=== PATIENT | male | born 1970 | race Caucasian/White ===

== ENCOUNTER 2018-12-28 01:43 | Observation (INO) ==
--- NOTE | 2018-12-28 03:17 | Emergency Department Note ---
Disposition Clinical Impression: Weakness, Shortness of breath Disposition: Admitted As Inpatient Condition: Good Time of Disposition: 21:40 General Adult HPI - General Chief complaint: ED Weakness Stated complaint: weak Time Seen by Provider: 12/28/18 03:11 Source: patient Limitations: no limitations - History of Present Illness Pain Scale: 0 - Related Data Home Medications Medication Instructions Recorded Confirmed Methadone 110 mg PO DAILY 12/28/18 12/28/18 Allergies Allergy/AdvReac Type Severity Reaction Status Date / Time hydrocodone Allergy Anaphylaxis Verified 12/10/17 19:28 Past Medical History - Past Medical History Medical history: Reports: COPD, GERD, hypertension, renal disease, other Surgical history: Reports: cholecystectomy, other (parathyroidectomy.) Psychiatric history: Reports: no psych history, other - Social History Smoking Status: Current every day smoker Smokeless Tobacco Status: No Alcohol use: Reports: none Drug use: Reports: cocaine, other Physical Exam - General Limitations: no limitations General appearance: alert, in no apparent distress Course Vital Signs Temperature 98.7 F 12/28/18 02:50 Pulse Rate 87 12/28/18 02:50 Respiratory Rate 20 12/28/18 02:50 Blood Pressure 150/97 12/28/18 02:50 O2 Sat by Pulse Oximetry 93 12/28/18 02:50 Temperature 97.9 F 12/28/18 19:25 Pulse Rate 93 12/28/18 19:25 Respiratory Rate 16 12/28/18 19:25 Blood Pressure 138/81 12/28/18 19:25 O2 Sat by Pulse Oximetry 93 12/28/18 19:25 Oxygen Delivery Oxygen Delivery Nasal Cannula Medical Decision Making - Lab Data Result diagrams: 12/28/18 03:04 12/28/18 03:04 Lab Results 12/28/18 12/28/18 12/28/18 Range/Units 03:04 03:04 03:04 WBC 12.0 H (4.3-11.1) K/mcL RBC 5.68 H (4.19-5.50) M/mcL Hgb 16.8 (12.9-16.9) g/dL Hct 51.2 H (37.5-50.1) % MCV 90.1 (83.0-100.0) fL MCH 29.6 (28.0-33.3) pg MCHC 32.8 (31.6-35.5) g/dL RDW 13.9 (11.5-14.5) % Plt Count 298 (140-400) K/mcL MPV 9.4 (9.4-12.4) fL Immature Gran % 0.6 (0-4) % Seg Neutrophils % 58.0 % Lymphocytes % 29.7 % Monocytes % 9.3 % Eosinophils % 2.1 % Basophils % 0.3 % Neutrophils # 6.9 (1.6-8.9) K/mcL Lymphocytes # 3.6 (0.6-4.6) K/mcL Monocytes # 1.1 (0.0-1.3) K/mcL Eosinophils # 0.3 (0.0-0.6) K/mcL Basophils # 0.0 (0.0-0.2) K/mcL Sample Site ABG pH (7.32-7.45) pH Units ABG pCO2 (35-45) mmHg ABG pO2 (85-104) mmHg ABG HCO3 (21-27) mEq/L ABG Total CO2 (20-26) mEq/L ABG O2 Saturation (95-98) % ABG Base Excess (-2 to 3) mEq/L Lewis Test O2 Delivery Device Inspired O2 (1-15=lpm [id number]=%) Sodium 139 (136-145) mEq/L Potassium 4.2 (3.5-5.1) mEq/L Chloride 105 (98-107) mEq/L Carbon Dioxide 25 (23-29) mEq/L BUN 35 H (6-20) mg/dL Creatinine 1.79 H (0.70-1.30) mg/dL Est GFR ( Amer) 49 L (> 60) Est GFR (Non-Af Amer) 41 L (> 60) BUN/Creatinine Ratio 20 (6-26) Glucose 100 (70-105) mg/dL Calculated Osmolality 296 (280-300) Calcium 8.2 L (8.6-10.3) mg/dL Troponin I < 0.03 (< 0.04) ng/mL B-Natriuretic Peptide 8 (Less than 100) pg/mL Urine Color (Yellow) Urine Clarity (Clear) Urine pH (5.0-8.0) pH Units Ur Specific [place] (1.010-1.025) Urine Protein (Neg-Trace) mg/dL Urine Glucose (UA) (Normal) mg/dL Urine Ketones (Negative) mg/dL Urine Blood (Negative) Urine Nitrite (Negative) Urine Bilirubin (Negative) Urine Urobilinogen (Normal) mg/dL Ur Leukocyte Esterase (Negative) Urine Microscopic RBC (0-3) per hpf Urine Microscopic WBC (0-3) per hpf Ur Squamous Epith Cells (None-Few) per lpf Urine Bacteria (None-Few) per hpf Hyaline Casts (None-Few) per lpf 12/28/18 12/28/18 Range/Units 03:28 04:00 WBC (4.3-11.1) K/mcL RBC (4.19-5.50) M/mcL Hgb (12.9-16.9) g/dL Hct (37.5-50.1) % MCV (83.0-100.0) fL MCH (28.0-33.3) pg MCHC (31.6-35.5) g/dL RDW (11.5-14.5) % Plt Count (140-400) K/mcL MPV (9.4-12.4) fL Immature Gran % (0-4) % Seg Neutrophils % % Lymphocytes % % Monocytes % % Eosinophils % % Basophils % % Neutrophils # (1.6-8.9) K/mcL Lymphocytes # (0.6-4.6) K/mcL Monocytes # (0.0-1.3) K/mcL Eosinophils # (0.0-0.6) K/mcL Basophils # (0.0-0.2) K/mcL Sample Site R Radial ABG pH 7.40 (7.32-7.45) pH Units ABG pCO2 45 (35-45) mmHg ABG pO2 57 L (85-104) mmHg ABG HCO3 28 H (21-27) mEq/L ABG Total CO2 29 H (20-26) mEq/L ABG O2 Saturation 89 L (95-98) % ABG Base Excess 2 (-2 to 3) mEq/L Lewis Test Positive O2 Delivery Device ROOM AIR Inspired O2 21.0 (1-15=lpm [id number]=%) Sodium (136-145) mEq/L Potassium (3.5-5.1) mEq/L Chloride (98-107) mEq/L Carbon Dioxide (23-29) mEq/L BUN (6-20) mg/dL Creatinine (0.70-1.30) mg/dL Est GFR ( Amer) (> 60) Est GFR (Non-Af Amer) (> 60) BUN/Creatinine Ratio (6-26) Glucose (70-105) mg/dL Calculated Osmolality (280-300) Calcium (8.6-10.3) mg/dL Troponin I (< 0.04) ng/mL B-Natriuretic Peptide (Less than 100) pg/mL Urine Color Yellow (Yellow) Urine Clarity Clear (Clear) Urine pH 5.5 (5.0-8.0) pH Units Ur Specific [place] 1.026 H (1.010-1.025) Urine Protein Trace (Neg-Trace) mg/dL Urine Glucose (UA) Normal (Normal) mg/dL Urine Ketones Negative (Negative) mg/dL Urine Blood Negative (Negative) Urine Nitrite Negative (Negative) Urine Bilirubin Negative (Negative) Urine Urobilinogen Normal (Normal) mg/dL Ur Leukocyte Esterase Small H (Negative) Urine Microscopic RBC 3-5 H (0-3) per hpf Urine Microscopic WBC 5-15 H (0-3) per hpf Ur Squamous Epith Cells Many H (None-Few) per lpf Urine Bacteria None Seen (None-Few) per hpf Hyaline Casts Few (None-Few) per lpf Attestation Statement - Attestation Attestation: I reviewed the residents documentation and agree with the residents assessment and plan of care. I have personally had face to face time with the patient. (Brief History, Brief Exam, and MDM) I personally supervised and was present for the marr/critical portions of the following procedures completed by the resident: (add procedures performed here). [id number] time provided Patient arrives by EMS complaining of "not feeling well." Feels short of breath. He states his family members woke him up from sleep and he was told he was "not acting right." He is an active smoker but denies alcohol ingestion. He takes no prescribed medications. On exam the patient does not appear in any acute cardiopulmonary distress. I attest to supervising the resident physician's interpretation of the ECG
[2018-12-28 03:25] LABS: Basophils % 0.3 %; Eosinophils # 0.3 K/mcL (0.0-0.6); Eosinophils % 2.1 %; Hematocrit 51.2 % (37.5-50.1); Hemoglobin 16.8 g/dL (12.9-16.9); Immature Granulocytes % 0.6 % (0-4); Lymphocytes # 3.6 K/mcL (0.6-4.6); Lymphocytes % 29.7 %; Mean Corpuscular HGB Conc 32.8 g/dL (31.6-35.5); Mean Corpuscular Hemoglobin 29.6 pg (28.0-33.3); Mean Corpuscular Volume 90.1 fL (83.0-100.0); Mean Platelet Volume 9.4 fL (9.4-12.4); Monocytes # 1.1 K/mcL (0.0-1.3); Monocytes % 9.3 %; Neutrophils # 6.9 K/mcL (1.6-8.9); Platelet Count 298 K/mcL (140-400); Red Blood Count 5.68 M/mcL (4.19-5.50); Red Cell Distribution Width 13.9 % (11.5-14.5)
[2018-12-28 03:32] LABS: ABG Base Excess 2 mEq/L (-2 to 3); ABG HCO3 28 mEq/L (21-27); ABG Oxygen Saturation 89 % (95-98); ABG PCO2 45 mmHg (35-45); ABG PO2 57 mmHg (85-104); ABG TCO2 29 mEq/L (20-26)
--- NOTE | 2018-12-28 03:37 | Emergency Department Note ---
Disposition Clinical Impression: Weakness, Shortness of breath Disposition: Admitted As Inpatient Condition: Good Time of Disposition: 05:41 General Adult HPI - General Chief complaint: ED Weakness Stated complaint: weak Time Seen by Provider: 12/28/18 03:11 Source: patient Mode of arrival: EMS Limitations: no limitations Nursing Notes Reviewed: Yes Vital Signs Reviewed: Yes - History of Present Illness HPI Narrative: Patient is a 48-year-old male with past medical history of hypertension, COPD, GERD who presents with abdominal pain, diarrhea, weakness that is ongoing for several months. Patient states that he is been feeling fatigued. Patient reports a history of his abdominal pain that has been intermittent for several months. Endorses some diarrhea consisting of runny, brown stools with no blood. Patient states that he came to the hospital by EMS because sister says "he was acting funny." However he denies this and currently does not endorse any symptoms. He does not have any numbness, paresthesias. He has not experienced any loss of consciousness or head trauma. Denies nausea, vomiting, fevers, chills. Is currently on methadone. Pain Scale: 0 - Related Data Home Medications Medication Instructions Recorded Confirmed Methadone 110 mg PO DAILY 12/28/18 12/28/18 Allergies Allergy/AdvReac Type Severity Reaction Status Date / Time hydrocodone Allergy Anaphylaxis Verified 12/10/17 19:28 All systems ED: reviewed and negative except as stated. Review of Systems: As Per HPI Constitutional: Denies: fever, chills, weakness Eyes: Denies: eye pain, eye discharge, vision change ENT ED: Denies: ear pain, throat pain, dental pain Cardiovascular: Denies: chest pain, palpitations, dyspnea on exertion Respiratory: Denies: cough, dyspnea, wheezes Gastrointestinal: Reports: abdominal pain. Denies: nausea, vomiting Genitourinary: Denies: urgency, dysuria, frequency Musculoskeletal: Denies: back pain, neck pain, joint swelling Integumentary: Denies: rash, abrasion, lesions Neurological: Denies: headache, weakness, numbness, paresthesias, confusion Psychiatric: Denies: anxiety, depression, suicidal thoughts Endocrine: Reports: fatigue. Denies: heat or cold intolerance, polydipsia Past Medical History - Past Medical History Attestation: Yes The following information was validated with the patient. Source: patient Medical history: Reports: COPD, GERD, hypertension, renal disease, other Surgical history: Reports: cholecystectomy, other (parathyroidectomy.) Psychiatric history: Reports: no psych history, other - Social History Smoking Status: Current every day smoker Smokeless Tobacco Status: No Alcohol use: Reports: none Drug use: Reports: cocaine, other Physical Exam GEN: well-appearing, no acute distress, conversant. HEENT: NC, AT. MMM. EOMI, clear conjunctiva, oropharynx clear. NECK: Supple without lymphadenopathy. No stiffness or restricted ROM. HEART: Normal rate and regular rhythm, normal S1/S1, no m/r/g LUNGS: CTAB, moving air well. No crackles or wheezes are heard. ABDOMEN: Soft, nontender, nondistended with good bowel sounds heard. BACK: No CVAT, no obvious deformity. EXTREMITIES: Without cyanosis, clubbing or edema. 5 out of 5 strength in upper and lower extremities. NEUROLOGICAL: Nonfocal neurologic exam. Alert and oriented, moving all 4 extre mities. Cranial nerves II through XII are intact. Observed to ambulate with normal gait. Skin: Warm and dry without any rash. - General Limitations: no limitations General appearance: alert, in no apparent distress Course Course Narrative: Patient was seen and examined. Vital signs normal and stable. Labs are ordered, ABG, CXR. Vital Signs Temperature 98.7 F 12/28/18 02:50 Pulse Rate 87 12/28/18 02:50 Respiratory Rate 20 12/28/18 02:50 Blood Pressure 150/97 12/28/18 02:50 O2 Sat by Pulse Oximetry 93 12/28/18 02:50 Temperature 98.7 F 12/28/18 02:50 Pulse Rate 87 12/28/18 02:50 Respiratory Rate 18 12/28/18 06:51 Blood Pressure 124/91 12/28/18 06:51 O2 Sat by Pulse Oximetry 93 12/28/18 02:50 Oxygen Delivery Oxygen Delivery Nasal Cannula Medical Decision Making - [facility] Narrative Medical decision making narrative: Patient is a 48-year-old male who is presenting with shortness of breath and weakness. Differential includes but is not limited to undiagnosed COPD, COPD exacerbation, heart failure exacerbation, pneumonia, pneumothorax, NJ, ACS, PE. Initial EKG and troponin were negative and show no signs of ischemic changes making NJ/ACS less likely. CBC is remarkable for a white count of 12. Chest x- ray shows some left basilar atelectasis with pulmonary vascular congestion. No evidence of pneumothorax. Patient has never been diagnosed as COPD before however he has a [id number] history of smoking and does have an increased oxygen requirement of 3 L. Patient failed to ambulate on room air. Patient brett atted to high 80s on room air. Low suspicion for PE since he is not having chest pain, tachycardia, no risk factors for PE/DVT. Plan is to admit the patient for suspected pneumonia with increased oxygen requirement with suspected underlying COPD. Patient is currently satting 95-96% on 3 L nasal cannula and resting comfortably. Patient was accepted by the hospitalist for admission. - Medical Records Medical records reviewed: Yes I reviewed the patient's medical records. - Lab Data Lab results reviewed: Yes I reviewed the patient's lab results. Result diagrams: 12/28/18 03:04 12/28/18 03:04 Lab Results 12/28/18 12/28/18 12/28/18 Range/Units 03:04 03:04 03:04 WBC 12.0 H (4.3-11.1) K/mcL RBC 5.68 H (4.19-5.50) M/mcL Hgb 16.8 (12.9-16.9) g/dL Hct 51.2 H (37.5-50.1) % MCV 90.1 (83.0-100.0) fL MCH 29.6 (28.0-33.3) pg MCHC 32.8 (31.6-35.5) g/dL RDW 13.9 (11.5-14.5) % Plt Count 298 (140-400) K/mcL MPV 9.4 (9.4-12.4) fL Immature Gran % 0.6 (0-4) % Seg Neutrophils % 58.0 % Lymphocytes % 29.7 % Monocytes % 9.3 % Eosinophils % 2.1 % Basophils % 0.3 % Neutrophils # 6.9 (1.6-8.9) K/mcL Lymphocytes # 3.6 (0.6-4.6) K/mcL Monocytes # 1.1 (0.0-1.3) K/mcL Eosinophils # 0.3 (0.0-0.6) K/mcL Basophils # 0.0 (0.0-0.2) K/mcL Sample Site ABG pH (7.32-7.45) pH Units ABG pCO2 (35-45) mmHg ABG pO2 (85-104) mmHg ABG HCO3 (21-27) mEq/L ABG Total CO2 (20-26) mEq/L ABG O2 Saturation (95-98) % ABG Base Excess (-2 to 3) mEq/L Lewis Test O2 Delivery Device Inspired O2 (1-15=lpm [id number]=%) Sodium 139 (136-145) mEq/L Potassium 4.2 (3.5-5.1) mEq/L Chloride 105 (98-107) mEq/L Carbon Dioxide 25 (23-29) mEq/L BUN 35 H (6-20) mg/dL Creatinine 1.79 H (0.70-1.30) mg/dL Est GFR ( Amer) 49 L (> 60) Est GFR (Non-Af Amer) 41 L (> 60) BUN/Creatinine Ratio 20 (6-26) Glucose 100 (70-105) mg/dL Calculated Osmolality 296 (280-300) Calcium 8.2 L (8.6-10.3) mg/dL Troponin I < 0.03 (< 0.04) ng/mL B-Natriuretic Peptide 8 (Less than 100) pg/mL Urine Color (Yellow) Urine Clarity (Clear) Urine pH (5.0-8.0) pH Units Ur Specific [place] (1.010-1.025) Urine Protein (Neg-Trace) mg/dL Urine Glucose (UA) (Normal) mg/dL Urine Ketones (Negative) mg/dL Urine Blood (Negative) Urine Nitrite (Negative) Urine Bilirubin (Negative) Urine Urobilinogen (Normal) mg/dL Ur Leukocyte Esterase (Negative) Urine Microscopic RBC (0-3) per hpf Urine Microscopic WBC (0-3) per hpf Ur Squamous Epith Cells (None-Few) per lpf Urine Bacteria (None-Few) per hpf Hyaline Casts (None-Few) per lpf 12/28/18 12/28/18 Range/Units 03:28 04:00 WBC (4.3-11.1) K/mcL RBC (4.19-5.50) M/mcL Hgb (12.9-16.9) g/dL Hct (37.5-50.1) % MCV (83.0-100.0) fL MCH (28.0-33.3) pg MCHC (31.6-35.5) g/dL RDW (11.5-14.5) % Plt Count (140-400) K/mcL MPV (9.4-12.4) fL Immature Gran % (0-4) % Seg Neutrophils % % Lymphocytes % % Monocytes % % Eosinophils % % Basophils % % Neutrophils # (1.6-8.9) K/mcL Lymphocytes # (0.6-4.6) K/mcL Monocytes # (0.0-1.3) K/mcL Eosinophils # (0.0-0.6) K/mcL Basophils # (0.0-0.2) K/mcL Sample Site R Radial ABG pH 7.40 (7.32-7.45) pH Units ABG pCO2 45 (35-45) mmHg ABG pO2 57 L (85-104) mmHg ABG HCO3 28 H (21-27) mEq/L ABG Total CO2 29 H (20-26) mEq/L ABG O2 Saturation 89 L (95-98) % ABG Base Excess 2 (-2 to 3) mEq/L Lewis Test Positive O2 Delivery Device ROOM AIR Inspired O2 21.0 (1-15=lpm [id number]=%) Sodium (136-145) mEq/L Potassium (3.5-5.1) mEq/L Chloride (98-107) mEq/L Carbon Dioxide (23-29) mEq/L BUN (6-20) mg/dL Creatinine (0.70-1.30) mg/dL Est GFR ( Amer) (> 60) Est GFR (Non-Af Amer) (> 60) BUN/Creatinine Ratio (6-26) Glucose (70-105) mg/dL Calculated Osmolality (280-300) Calcium (8.6-10.3) mg/dL Troponin I (< 0.04) ng/mL B-Natriuretic Peptide (Less than 100) pg/mL Urine Color Yellow (Yellow) Urine Clarity Clear (Clear) Urine pH 5.5 (5.0-8.0) pH Units Ur Specific [place] 1.026 H (1.010-1.025) Urine Protein Trace (Neg-Trace) mg/dL Urine Glucose (UA) Normal (Normal) mg/dL Urine Ketones Negative (Negative) mg/dL Urine Blood Negative (Negative) Urine Nitrite Negative (Negative) Urine Bilirubin Negative (Negative) Urine Urobilinogen Normal (Normal) mg/dL Ur Leukocyte Esterase Small H (Negative) Urine Microscopic RBC 3-5 H (0-3) per hpf Urine Microscopic WBC 5-15 H (0-3) per hpf Ur Squamous Epith Cells Many H (None-Few) per lpf Urine Bacteria None Seen (None-Few) per hpf Hyaline Casts Few (None-Few) per lpf - Radiology Data Radiology results reviewed: Yes I reviewed the patient's radiology results. - EKG Data EKG #1 EKG attestation: Yes I reviewed and interpreted this EKG. EKG results narrative: EKG was obtained at 3:42 AM. My interpretation of the EKG shows normal sinus rhythm, no axis deviation, normal intervals, no ST elevations or depressions, no T-wave inversions. No hypertrophy. No evidence of WPW, Brugada, HOCM. Compared to prior from 10/02/2015.
[2018-12-28 03:44] LABS: BUN/Creatinine Ratio 20 (6-26); Blood Urea Nitrogen 35 mg/dL (6-20); Calcium 8.2 mg/dL (8.6-10.3); Carbon Dioxide 25 mEq/L (23-29); Chloride 105 mEq/L (98-107); Glucose 100 mg/dL (70-105); Osmolality,Calculated 296 (280-300); Potassium 4.2 mEq/L (3.5-5.1); Sodium 139 mEq/L (136-145); eGFR For African Americans 49 (> 60); eGFR For Non-African Americans 41 (> 60)
[2018-12-28 03:54] LABS: Troponin I < 0.03 ng/mL (< 0.04)
[2018-12-28 04:16] LABS: Bilirubin,Urine Negative (Negative); Blood,Urine Negative (Negative); Clarity,Urine Clear (Clear); Color,Urine Yellow (Yellow); Glucose,Urine (UA) Normal (Normal); Ketones,Urine Negative (Negative); Leukocyte Esterase,Urine Small (Negative); Nitrite,Urine Negative (Negative); PH,Urine 5.5 pH Units (5.0-8.0); Protein,Urine Trace mg/dL (Neg-Trace); Specific Gravity,Urine 1.026 (1.010-1.025); Urobilinogen,Urine Normal (Normal)
[2018-12-28 04:17] LABS: Bacteria,Urine None Seen per hpf (None-Few); Hyaline Casts,Urine Few per lpf (None-Few); Squamous Epithelial Cell,Urine Many per lpf (None-Few)
[2018-12-28] MEDS ORDERED: levoFLOXacin 500 MG/100 ML 500 MG/100 ML BAG IVPB ONE (04:37)
[2018-12-28] MEDS ORDERED: methylPREDNISolone 125 MG/2 ML VIAL IVP ONE (04:38)
[2018-12-28] MEDS ORDERED: Ondansetron ODT 4 MG TAB.RAPDIS SL PRN (11:23)
[2018-12-28] MEDS ORDERED: Naloxone 0.4 MG/ML INJ IVP PRN (11:23)
--- NOTE | 2018-12-28 11:26 | Internal Med History&Physical ---
Date of Encounter: 12/28/18 Time of Encounter: 11:26 Internal Medicine - H&P: HPI Chief complaint: shortness of breath History of present illness: Mr. Fairchild is a 48 year old male with past medical history of OPD, GERD, hypertension, renal disease and 40 back year history of smoking who presented to the ER with shortness of breath associated with generalized weakness as well as fatigue. Patient also reported increase oxygen requirement to almost 3 L The patient also complaining of some abdominal pain associated with loose stool however she deny hematochezia or melena. The patient denied nausea, vomiting, fever and chills. The patient denies numbness, tingling, paresthesia, lightheadedness and dizziness. She was evaluated by the ER staff and her EKG revealed no significant of ST or T-wave changes, troponin first set was was no significant abnormalities. X-ray revealed pulmonary vascular congestion and atelectasis. As per ER staff the patient was saturating around 80% on on arrivaL her oxygen requirement increase to 3 L. The patient was treated with Solu-Medrol and respiratory treatment and was admitted for further evaluation and management. Past Med Surg Social Fam HX - Past Medical History Medical history: COPD, GERD, hypertension, renal disease, other Additional medical history: awaiting PET scan results "found something in my lungs" Psychiatric history: no psych history, other - Past Surgical History Surgical History: cholecystectomy, other (parathyroidectomy.) Additional surgical history: parathyroid - Social History Smoking Status: Current every day smoker Smokeless Tobacco Status: No Alcohol use: none Drug use: cocaine, other - Family History Father Living Status: Hx Family Cardiac Disorders: Yes Hx Family Respiratory Disorders: Yes Hx Family Cancer: Yes Hx Family GI Disorders: No Hx Family Endocrine Disorder: No Hx Family Neuromuscular Disorders: No Hx Family Neurologic Disorders: No Hx Family HEENT Disorders: No Hx Family Autoimmune Disorders: No Mother Adopted: No Living Status: Hx Family Cardiac Disorders: Yes Hx Family Respiratory Disorders: Yes Hx Family Cancer: No Hx Family GI Disorders: No Hx Family Endocrine Disorder: Yes Hx Family Neuromuscular Disorders: No Hx Family Neurologic Disorders: No Hx Family HEENT Disorders: No Hx Family Autoimmune Disorders: No Internal Medicine - H&P: Meds Albuterol Sulfate [Proventil Inhaler] 2 puff IH Q4HR PRN #1 [email or web address] 12/29/18 [Rx] Doxycycline 100 mg PO BID 4 Days #8 capsule 12/29/18 [Rx] Methadone Oral Concentrate [Methadone] 110 mg PO DAILY 12/29/18 [History] amLODIPine [Norvasc] 5 mg PO DAILY 30 Days #30 tablet 12/29/18 [Rx] predniSONE [PredniSONE] See Taper PO DAILY 12 Days #30 tablet 12/29/18 [Rx] Allergy/AdvReac Type Severity Reaction Status Date / Time hydrocodone Allergy Anaphylaxis Verified 12/10/17 19:28 All Systems PM: A 10-system review of systems was performed and is negative for pertinent findings except as documented above in the HPI. - Constitutional Vitals: Temp Pulse Resp BP Pulse Ox 98.4 F 81 14 135/89 95 12/28/18 10:51 12/28/18 10:51 12/28/18 10:51 12/28/18 10:51 12/28/18 10:51 General appearance: Present: A&O X 3 Exam: . - Head Head exam: Present: atraumatic, normocephalic - Neck Neck exam general surgery: Present: supple, trachea midline. Absent: lym phadenopathy - Respiratory Respiratory exam: Present: rhonchi, wheezes. Absent: accessory muscle use, rales - Cardiovascular Cardiovascular exam: Present: RRR, +S1, +S2. Absent: diastolic murmur, gallop, rubs, systolic murmur - GI/Abdominal GI/Abdominal exam: Present: normal bowel sounds, soft, no peritoneal signs. Absent: distended, tenderness - Extremities Exam Extremities exam: Present: warm, radial pulses palpable and symmetrical. A bsent: calf tenderness, cyanotic, pedal edema Internal Med - H&P Results - Labs CBC & Chem 7: 12/29/18 06:46 12/29/18 06:46 Labs: Short CBC 12/28/18 Range/Units 03:04 WBC 12.0 H (4.3-11.1) K/mcL Hgb 16.8 (12.9-16.9) g/dL Hct 51.2 H (37.5-50.1) % Plt Count 298 (140-400) K/mcL Neutrophils # 6.9 (1.6-8.9) K/mcL BMP 12/28/18 03:04 Sodium 139 Potassium 4.2 Chloride 105 Carbon Dioxide 25 BUN 35 H Creatinine 1.79 H Glucose 100 Calcium 8.2 L Cardiac Enzymes 12/28/18 Range/Units 03:04 Troponin I < 0.03 (< 0.04) ng/mL Urine 12/28/18 Range/Units 04:00 Urine Color Yellow (Yellow) Urine Clarity Clear (Clear) Urine pH 5.5 (5.0-8.0) pH Units Ur Specific [place] 1.026 H (1.010-1.025) Urine Protein Trace (Neg-Trace) mg/dL Urine Glucose (UA) Normal (Normal) mg/dL - ABG Interpretation ABG results: 12/28/18 03:28 ABG pH 7.40 ABG pCO2 45 ABG pO2 57 L ABG HCO3 28 H ABG Total CO2 29 H ABG O2 Saturation 89 L ABG Base Excess 2 - Impressions ITS Impressions Chest X-Ray 12/28/18 02:54 IMPRESSION: Left basilar atelectasis/pneumonitis with possible small effusion. Mild pulmonary vascular congestion. D/ / Fausto Freire / Fausto Freire Interpreting Provider: Fausto Freire - Assessment and Plan (1) Acute exacerbation of chronic obstructive airways disease Status: Acute Assessment and plan: ASSESSMENT: - SOB COPD exacerbation caused by URTI vs allergen exposure,vs medication nonocompliance *Pneumonia - ?? infiltrate on CXR PLAN: - Aerosols q 4 hr and PRN SOB - Solu-medrol 40 mg IV q 6 hr - O2 to keep SpO2 higher than 92% (SpO higher than 95% if CAD) - CBCD, BMP in AM - Sputum Gram stain, C+S - Tylenol 650 mg PO q 4-6 hr PRN pain/fever - ABs (2) Acute renal injury Status: Acute Assessment and plan: The patient has history of acute kidney injury in the past, appears to be recovered in 2018, they his creatinine is above his baseline, most likely secondary to volume depletion and possible underlying infectious process, we will continue to monitor kidney function, start the patient on IV hydration with normal saline, strict I&O's, renal dosing of medication as per GFR (3) Weakness Status: Acute (4) Tobacco abuse Status: Chronic Assessment and plan: The patient was counseled about smoking cessation - Time Spent With Patient Total time spent is greater than 50% in coordination of care (as documented) at patient's floor/unit and/or counseling patient:
[2018-12-28] MEDS: MethylPREDNISolone 40 MG/ML VIAL IVP SCH ×3 (13:06→23:59)
[2018-12-28] MEDS: Methadone Oral Concentrate 50 MG/5 ML UDC PO SCH (14:50)
[2018-12-28] MEDS: Ipratropium/Albuterol Neb 3 ML IH SCH ×2 (16:04→22:55)
--- NOTE | 2018-12-28 16:46 | Electrocardiograph Report ---
[address] [address] Test Date: 2018-12-28 Pat Name: Gibran Fairchild Department: [id number] Room: 3A14 Gender: M Advance Agent: : [id number] Requested By: Alfredito Harris Order Number: [id number] Reading MD: Dave Rouse Measurements Intervals [place] Rate: 88 P: 39 DC: 151 QRS: 38 QRSD: 104 T: 54 QT: 407 QTc: 493 Interpretive Statements Sinus rhythm Borderline prolonged QT interval Electronically Signed On 12-28-2018 16:44:34 EDT by Dave Rouse
[2018-12-28] MEDS ORDERED: Nicotine 7 MG PATCH.TD24 TD SCH (21:45)
[2018-12-28] MEDS: Nicotine 2 MG GUM BC PRN (22:02)
[2018-12-29] MEDS: Nicotine 2 MG GUM BC PRN ×2 (03:06→15:07)
[2018-12-29] MEDS: Ipratropium/Albuterol Neb 3 ML IH SCH ×3 (03:21→15:33)
[2018-12-29] MEDS: MethylPREDNISolone 40 MG/ML VIAL IVP SCH ×2 (05:33→12:00)
[2018-12-29] MEDS ORDERED: 0.9 % Sodium Chloride 1,000 ML IVC SCH (05:45)
[2018-12-29] MEDS ORDERED: Doxycycline 100 MG in 0.9 % Sodium Chloride Mini Bag 100 ML IVPB SCH (06:00)
[2018-12-29 07:12] LABS: Basophils % 0.1 %; Hematocrit 47.4 % (37.5-50.1); Hemoglobin 15.4 g/dL (12.9-16.9); Immature Granulocytes % 1.1 % (0-4); Lymphocytes # 0.9 K/mcL (0.6-4.6); Lymphocytes % 5.1 %; Mean Corpuscular HGB Conc 32.5 g/dL (31.6-35.5); Mean Corpuscular Hemoglobin 28.8 pg (28.0-33.3); Mean Corpuscular Volume 88.6 fL (83.0-100.0); Mean Platelet Volume 9.7 fL (9.4-12.4); Monocytes # 0.8 K/mcL (0.0-1.3); Monocytes % 4.3 %; Platelet Count 266 K/mcL (140-400); Red Blood Count 5.35 M/mcL (4.19-5.50); Red Cell Distribution Width 13.4 % (11.5-14.5); Segmented Neutrophils % 89.4 %
[2018-12-29 07:21] LABS: Prothrombin Time 11.9 Seconds (9.4-12.1)
[2018-12-29 07:30] LABS: Alanine Aminotransferase 14 Units/L (7-52); Albumin 3.7 g/dL (3.5-5.7); Albumin/Globulin Ratio 1.1 (1.1-2.2); Alkaline Phosphatase 78 Units/L (34-104); Aspartate Amino Transferase 13 Units/L (13-39); BUN/Creatinine Ratio 24 (6-26); Bilirubin,Total 0.2 mg/dL (0.3-1.0); Blood Urea Nitrogen 29 mg/dL (6-20); Calcium 8.2 mg/dL (8.6-10.3); Carbon Dioxide 23 mEq/L (23-29); Chloride 101 mEq/L (98-107); Cholesterol 178 mg/dL (< 200); Globulin 3.4 g/dL (2.4-3.5); Glucose 297 mg/dL (70-105); HDL Cholesterol 44 mg/dL (40-59); LDL Cholesterol,Calculated 108 mg/dL (0-99); Magnesium 1.9 mg/dL (1.6-2.6); Osmolality,Calculated 301 (280-300); Phosphorous 3.5 mg/dL (2.7-4.5); Potassium 4.1 mEq/L (3.5-5.1); Sodium 137 mEq/L (136-145); Total Protein 7.1 g/dL (6.4-8.9); Triglycerides 128 mg/dL (< 150); eGFR For African Americans > 60 (> 60); eGFR For Non-African Americans > 60 (> 60)
[2018-12-29 07:31] LABS: Neutrophils # 16.5 K/mcL (1.6-8.9); White Blood Count 18.4 K/mcL (4.3-11.1)
[2018-12-29] MEDS: Methadone Oral Concentrate 50 MG/5 ML UDC PO SCH (07:36)
[2018-12-29] MEDS ORDERED: levoFLOXacin 500 MG/100 ML 500 MG/100 ML BAG IVPB SCH (09:00)
--- NOTE | 2018-12-29 09:51 | Internal Med Progress Note ---
Hospitalist Progress Note - Encounter Date of Encounter: 12/29/18 Time of Encounter: 09:51 - Subjective Interval History: Patient seen and examined this morning at bedside. No acute overnight events. Denies new complaints. Breathing improved. Denies fevers chills nausea vomiting or diarrhea. Denies any chest pain or abdominal pain. - Exam Vitals: Temp Pulse Resp BP Pulse Ox 97.7 F 76 15 161/83 93 12/29/18 07:16 12/29/18 07:16 12/29/18 07:16 12/29/18 07:16 12/29/18 07:20 Exam: General: In no acute distress. Respiratory exam: no accessory muscle use, good air entry, occasioinal rhonchi Cardiovascular exam: RRR, +S1, +S2. no murmur, gallop, rubs. GI/Abdominal exam: Non-tender, Non-distended, normal bowel sounds, soft, no peritoneal signs. Extremities exam: no pedal edema, pulses palpable in b/l lower extremities. no calf tenderness Neurological exam: CN II-XII intact, AO X3, no focal deficits. Skin exam: No skin rash - Assessment and Plan (1) Acute renal injury Current Visit: No Status: Acute (2) Acute exacerbation of chronic obstructive airways disease Current Visit: No Status: Acute (3) Tobacco abuse Current Visit: No Status: Chronic (4) Weakness Current Visit: Yes Status: Acute - Summary of Assessment and Plan Summary of Assessment and Plan: Assessment Acute Acute hypoxic respiratory failure Likely COPD exacerbation KAPIL on CKD leukocytosis hyperglycemia Chronic tobacco smoking HTN GERD Opiate dependence on methadone Plan - Likely undiagnosed COPD. c/w solumedrol taper and bronchodilators. CXR with Lt basilar infiltrate/atelectasis. c/w empiric doxycycline, chosen due to prolong QT with methadone use. Clinically improved. Will do short 5 day course. start symbicort. - c/w supplemental oxygen. currently doing well on room air resting. Will walk him later today for discharge planning. - KAPIL resolved with IVF. will stop fluids. start diet - leukocytosis and hyperglycemia likey from steroids - couselled on smoking cessation - will need outpatient pulm follow up - Likely plan for DC tomorrow if continue improvement. f/u oxygen needs. Internal Medicine: Result - Labs CBC & Chem 7: 12/29/18 06:46 12/29/18 06:46 Labs: Short CBC 12/29/18 Range/Units 06:46 WBC 18.4 H D (4.3-11.1) K/mcL Hgb 15.4 (12.9-16.9) g/dL Hct 47.4 (37.5-50.1) % Plt Count 266 (140-400) K/mcL Neutrophils # 16.5 H (1.6-8.9) K/mcL BMP 12/29/18 06:46 Sodium 137 Potassium 4.1 Chloride 101 Carbon Dioxide 23 BUN 29 H Creatinine 1.19 Glucose 297 H Calcium 8.2 L Cardiac Enzymes 12/28/18 12/28/18 12/28/18 Range/Units 11:55 17:22 23:16 Troponin I < 0.03 < 0.03 < 0.03 (< 0.04) ng/mL Liver Function 12/29/18 Range/Units 06:46 Total Bilirubin 0.2 L (0.3-1.0) mg/dL AST 13 (13-39) Units/L ALT 14 (7-52) Units/L Alkaline Phosphatase 78 (34-104) Units/L Albumin 3.7 (3.5-5.7) g/dL - ABG Interpretation ABG results: ABG ABG pH 7.40 pH Units (7.32-7.45) 12/28/18 03:28 ABG pCO2 45 mmHg (35-45) 12/28/18 03:28 ABG pO2 57 mmHg (85-104) L 12/28/18 03:28 ABG O2 Saturation 89 % (95-98) L 12/28/18 03:28 PT/INR, D-dimer PT 11.9 Seconds (9.4-12.1) 12/29/18 06:46 Consult Discharge Plan - Plan Referrals: Stefanie Hu [Resident] - 01/08/19 2:00 pm
[2018-12-29 14:45] VITALS: BP 184/90
[2018-12-29] MEDS ORDERED: Acetaminophen 325 MG TABLET PO PRN (16:17)
--- NOTE | 2018-12-29 16:26 | Electrocardiograph Report ---
[address] [address] Test Date: 2018-12-28 Pat Name: Gibran Fairchild Department: 115 Room: 3A14 Gender: M [employer]: : 1970 Requested By: Connie Salazar Order Number: [id number] Reading MD: Pradeep Barr Measurements Intervals [place] Rate: 79 P: 58 DE: 166 QRS: 19 QRSD: 99 T: 48 QT: 389 QTc: 423 Interpretive Statements SINUS RHYTHM NONSPECIFIC T-WAVE ABNORMALITY Electronically Signed On 12-29-2018 16:25:11 EDT by Pradeep Barr
--- NOTE | 2018-12-29 16:50 | Discharge Summary ---
- NOTES TO OUTPATIENT PROVIDER Notes to Outpatient Provider: follow-up in 1-2 weeks for pulmonary function test evaluation to diagnose COPD. We will need monitoring for his blood pressure management as well. Orders not resulted at time of discharge: Pending orders 12/28/18 06:13 Culture,Blood [BC] Stat Date of Encounter: 12/29/18 Time of Encounter: 16:45 - Discharge Diagnosis (1) Acute renal injury Priority: Primary Status: Acute (2) Acute exacerbation of chronic obstructive airways disease Priority: Primary Status: Acute (3) Tobacco abuse Priority: Secondary Status: Chronic (4) Weakness Priority: Secondary Status: Acute Hospital course: Mr. Fairchild is a 48 year old male with past medical history of COPD, GERD, hypertension came in with complaint of shortness of breath and fatigue. Patient had chest x-ray with showed left basilar atelectasis versus pneumonitis. Patient had extensive smoking history and was thought to have COPD exacerbation. There was some congestion described on chest x-ray however patient's BNP is 8 essentially ruling out CHF this patient without cardiac history. He was started on IV steroids and inhaler treatments. He is on methadone program and hence was started on doxycycline for possible underlying infectious etiology for COPD exacerbation. He is also not diagnosed with COPD at baseline and only takes methadone at home. Patient is doing well today and not needing any supplemental oxygen. He is KAPIL has improved and currently renal function at baseline. He stable to be discharged to follow up outpatient with PCP for definitive COPD diagnosis by PFTs. We will discharged with steroid taper and when necessary albuterol. We will also discharged with 5 mg of amlodipine. Discharge discussed with: patient, nurse, social work - Time Spent with Patient Total time spent providing and/or coordinating discharge services: Time spent: Greater than 30 minutes (35) - Discharge Medications Prescriptions: New Doxycycline 100 mg PO BID 4 Days #8 capsule predniSONE [PredniSONE] See Taper PO DAILY 12 Days #30 tablet Albuterol Sulfate [Proventil Inhaler] 2 puff IH Q4HR PRN #1 hfa.[email or web address] PRN Reason: Shortness Of Breath/Wheezing amLODIPine [Norvasc] 5 mg PO DAILY 30 Days #30 tablet Continued Methadone Oral Concentrate [Methadone] 110 mg PO DAILY Home Medications: Albuterol Sulfate [Proventil Inhaler] 2 puff IH Q4HR PRN #1 hfa.aer.ad 12/29/18 [Rx] Doxycycline 100 mg PO BID 4 Days #8 capsule 12/29/18 [Rx] Methadone Oral Concentrate [Methadone] 110 mg PO DAILY 12/29/18 [History] amLODIPine [Norvasc] 5 mg PO DAILY 30 Days #30 tablet 12/29/18 [Rx] predniSONE [PredniSONE] See Taper PO DAILY 12 Days #30 tablet 12/29/18 [Rx] Allergies/Adverse Reactions: Allergy/AdvReac Type Severity Reaction Status Date / Time hydrocodone Allergy Anaphylaxis Verified 12/10/17 19:28 Date of admission: 12/28/18 06:13 Primary care physician: PCP NONE Consults: 12/28/18 11:49 Consult to Nurse Navigator [CONS] Routine Comment: Discharging clinician: Yuriy Guzman - Constitutional Vitals: Temp Pulse Resp BP Pulse Ox 97.5 F L 85 16 184/90 91 12/29/18 14:44 12/29/18 14:44 12/29/18 15:34 12/29/18 14:44 12/29/18 15:34 Exam: General: In no acute distress. Respiratory exam: no accessory muscle use, good air entry, occasioinal rhonchi Cardiovascular exam: RRR, +S1, +S2. no murmur, gallop, rubs. GI/Abdominal exam: Non-tender, Non-distended, normal bowel sounds, soft, no peritoneal signs. Extremities exam: no pedal edema, pulses palpable in b/l lower extremities. no calf tenderness Neurological exam: CN II-XII intact, AO X3, no focal deficits. Skin exam: No skin rash - Patient Status Disposition: Home, Self-Care Condition: Good - Discharge Instructions Follow Up With: Stefanie Hu [Resident] - 01/08/19 2:00 pm - Diet and Activity Activity: increase activity as tolerated
[2018-12-29] MEDS ORDERED: MethylPREDNISolone 40 MG/ML VIAL IVP SCH (18:00)
[2018-12-29] MEDS ORDERED: Budesonide/Formoterol 160/4.5 1 PUFF INH IH SCH (22:00)
== END 2018-12-29 17:03 | disposition home or self-care (01) ==
LOC: 3ANU 01:43 → EMEROOARM 01:43 → 3ANU 07:47
PROVIDERS: ADMIT Pediatrics; ATTEND Pediatrics

== ENCOUNTER 2020-06-04 22:47 | Inpatient (IN) ==
[2020-06-04] MEDS ORDERED: Ondansetron 4 MG/2 ML VIAL IVP ONE (22:57)
[2020-06-04] MEDS ORDERED: Azithromycin 500 MG in D5% in Water 250 ML IVPB ONE (22:57)
[2020-06-04] MEDS ORDERED: 0.9 % Sodium Chloride 1,000 ML IVC ONE (22:57)
[2020-06-04] MEDS ORDERED: Ipratropium/Albuterol Neb 3 ML IH ONE (22:57)
[2020-06-04 23:56] LABS: Basophils # 0.1 K/mcL (0.0-0.2); Basophils % 0.3 %; Eosinophils # 0.1 K/mcL (0.0-0.6); Eosinophils % 0.9 %; Hematocrit 46.1 % (37.5-50.1); Hemoglobin 15.2 g/dL (12.9-16.9); Immature Granulocytes % 0.6 % (0-4); Lymphocytes % 13.7 %; Mean Corpuscular Hemoglobin 27.9 pg (28.0-33.3); Mean Corpuscular Volume 84.6 fL (83.0-100.0); Mean Platelet Volume 9.5 fL (9.4-12.4); Monocytes # 1.1 K/mcL (0.0-1.3); Monocytes % 7.5 %; Neutrophils # 11.4 K/mcL (1.6-8.9); Platelet Count 325 K/mcL (140-400); Red Blood Count 5.45 M/mcL (4.19-5.50); Red Cell Distribution Width 14.1 % (11.5-14.5); White Blood Count 14.9 K/mcL (4.3-11.1)
[2020-06-04 23:59] LABS: INR 1.1; Prothrombin Time 13.2 Seconds (9.4-12.1)
[2020-06-05 00:02] LABS: Activated Partial Thrombo Time 28.3 Seconds (26.0-36.0)
[2020-06-05 00:17] LABS: ABG Base Excess 0 mEq/L (-2 to 3); ABG HCO3 27 mEq/L (21-27); ABG Oxygen Saturation 90 % (95-98); ABG PCO2 52 mmHg (35-45); ABG PH 7.33 pH Units (7.32-7.45); ABG PO2 63 mmHg (85-104); ABG TCO2 29 mEq/L (20-26)
[2020-06-05 00:30] LABS: Acetaminophen < 10 mcg/mL (10-20); Alanine Aminotransferase 16 Units/L (7-52); Albumin 3.9 g/dL (3.5-5.7); Albumin/Globulin Ratio 1.1 (1.1-2.2); Alkaline Phosphatase 109 Units/L (34-104); Aspartate Amino Transferase 19 Units/L (13-39); BUN/Creatinine Ratio 21 (6-26); Bilirubin,Direct 0.1 mg/dL (0.0-0.2); Bilirubin,Indirect 0.3 mg/dL (0.0-1.0); Bilirubin,Total 0.4 mg/dL (0.3-1.0); Blood Urea Nitrogen 31 mg/dL (6-20); Calcium 7.1 mg/dL (8.6-10.3); Carbon Dioxide 24 mEq/L (23-29); Chloride 102 mEq/L (98-107); Creatine Kinase 354 Units/L (30-223); Ethanol < 10 mg/dL (Less than 10); Globulin 3.7 g/dL (2.4-3.5); Glucose 281 mg/dL (70-105); Magnesium 1.7 mg/dL (1.6-2.6); Osmolality,Calculated 303 (280-300); Potassium 3.4 mEq/L (3.5-5.1); Salicylate < 2.5 mg/dL (15.0-30.0); Sodium 138 mEq/L (136-145); Total Protein 7.6 g/dL (6.4-8.9); Troponin I < 0.03 ng/mL (< 0.04); eGFR For African Americans > 60 (> 60); eGFR For Non-African Americans 50 (> 60)
[2020-06-05 00:36] LABS: Amphetamine Screen,Urine Positive ng/mL (Cutoff=1000); Barbiturate Screen,Urine Negative ng/mL (Cutoff=200); Benzodiazepines Screen,Urine Positive ng/mL (Cutoff=200); Cannabinoid Screen,Urine Negative ng/mL (Cutoff = 50); Cocaine Screen,Urine Negative ng/mL (Cutoff= 300); Opiate Screen,Urine Positive ng/mL (Cutoff=300); Phencyclidine Screen,Urine Negative ng/mL (Cutoff=25)
[2020-06-05] MEDS ORDERED: Isovue-370 500 ML BOTTLE IVP ONE (00:47)
[2020-06-05 00:55] LABS: Lipase 985 Units/L (11-82)
[2020-06-05 00:58] LABS: Adenovirus Not Detected (Not Detect); Bordetella Pertussis Not Detected (Not Detect); Chlamydophila pneumoniae Not Detected (Not Detect); Coronavirus 229E Not Detected (Not Detect); Coronavirus HKU1 Not Detected (Not Detect); Coronavirus NL63 Not Detected (Not Detect); Coronavirus OC43 Not Detected (Not Detect); Human Metapneumovirus Not Detected (Not Detect); Human Rhinovirus/Enterovirus Not Detected (Not Detect); Influenza A Subtype 2009 H1 Not Detected (Not Detect); Influenza B Not Detected (Not Detect); Mycoplasma pneumoniae Not Detected (Not Detect); Parainfluenza Virus 1 Not Detected (Not Detect); Parainfluenza Virus 2 Not Detected (Not Detect); Parainfluenza Virus 3 Not Detected (Not Detect); Parainfluenza Virus 4 Not Detected (Not Detect); Respiratory Syncytial Virus Not Detected (Not Detect); SARS-CoV-2 Not Detected (Not Detect)
[2020-06-05 01:37] LABS: Bacteria,Urine Few per hpf (None-Few); Bilirubin,Urine Negative (Negative); Blood,Urine Trace (Negative); Clarity,Urine Clear (Clear); Color,Urine Yellow (Yellow); Glucose,Urine (UA) 100 mg/dL (Normal); Ketones,Urine Negative (Negative); Leukocyte Esterase,Urine Negative (Negative); Mucus,Urine Few per lpf (None-Few); Nitrite,Urine Negative (Negative); PH,Urine 5.5 pH Units (5.0-8.0); Protein,Urine 30 mg/dL (Neg-Trace); RBC,Urine 0-3 per hpf (0-3); Specific Gravity,Urine 1.022 (1.010-1.025); Squamous Epithelial Cell,Urine Few per hpf (None-Few); Urobilinogen,Urine Normal (Normal); WBC,Urine 0-3 per hpf (0-3)
[2020-06-05] MEDS ORDERED: Ampicillin/Sulbactam 3,000 MG in 0.9 % Sodium Chloride Mini Bag 100 ML IVPB ONE (02:42)
[2020-06-05] MEDS ORDERED: Dextrose Gel 15 GM/37.5 ML TUBE PO PRN ×2 (03:29)
[2020-06-05] MEDS ORDERED: D5% in Water 1,000 ML IVC PRN (03:29)
[2020-06-05] MEDS ORDERED: *HR* Dextrose 50 % in Water (Vial) 50 ML VIAL IVP PRN (03:29)
[2020-06-05] MEDS ORDERED: Potassium Chloride 40 MEQ, Lidocaine 1% 2 ML in 0.9 % Sodium Chloride 500 ML IVPB ONE (03:30)
[2020-06-05] MEDS ORDERED: Ipratropium/Albuterol Neb 3 ML IH PRN (03:31)
[2020-06-05] MEDS: 0.9 % Sodium Chloride 1,000 ML IVC SCH ×3 (04:51→15:15)
[2020-06-05 06:22] LABS: Basophils % 0.2 %; Eosinophils % 0.1 %; Hematocrit 45.1 % (37.5-50.1); Hemoglobin 14.6 g/dL (12.9-16.9); Immature Granulocytes % 0.6 % (0-4); Lymphocytes # 0.8 K/mcL (0.6-4.6); Mean Corpuscular HGB Conc 32.4 g/dL (31.6-35.5); Mean Corpuscular Hemoglobin 28.2 pg (28.0-33.3); Mean Corpuscular Volume 87.2 fL (83.0-100.0); Mean Platelet Volume 9.6 fL (9.4-12.4); Monocytes # 0.2 K/mcL (0.0-1.3); Monocytes % 1.3 %; Neutrophils # 11.9 K/mcL (1.6-8.9); Platelet Count 304 K/mcL (140-400); Red Blood Count 5.17 M/mcL (4.19-5.50); Segmented Neutrophils % 91.8 %; White Blood Count 12.9 K/mcL (4.3-11.1)
[2020-06-05 06:28] LABS: Estimated Average Glucose 229 mg/dl; Hemoglobin A1C 9.6 %
[2020-06-05 06:52] LABS: BUN/Creatinine Ratio 22 (6-26); Blood Urea Nitrogen 27 mg/dL (6-20); Calcium 6.9 mg/dL (8.6-10.3); Carbon Dioxide 22 mEq/L (23-29); Chloride 104 mEq/L (98-107); Glucose 345 mg/dL (70-105); Magnesium 1.7 mg/dL (1.6-2.6); Osmolality,Calculated 299 (280-300); Phosphorous 3.2 mg/dL (2.7-4.5); Potassium 4.4 mEq/L (3.5-5.1); Sodium 135 mEq/L (136-145); eGFR For African Americans > 60 (> 60); eGFR For Non-African Americans > 60 (> 60)
[2020-06-05 07:01] LABS: Thyroid Stimulating Hormone 0.401 mcIU/mL (0.340-5.600)
[2020-06-05] MEDS: Ampicillin/Sulbactam 1,500 MG in 0.9 % Sodium Chloride Mini Bag 100 ML IVPB SCH ×2 (08:35→14:00)
[2020-06-05] MEDS: Nicotine 21 MG PATCH.TD24 TD SCH (08:35)
[2020-06-05] MEDS: Insulin LISPRO 300 UNITS/3 ML VIAL SUBQ SCH ×4 (08:39→21:31)
[2020-06-05] MEDS: *HR* Heparin 5,000 UNIT/ML VIAL SQ SCH ×2 (14:00→21:31)
[2020-06-05] MEDS: Insulin DETEMIR 100 UNIT/ML X5UNITS SUBQ SCH (14:00)
[2020-06-05] MEDS: Ampicillin/Sulbactam 3,000 MG in 0.9 % Sodium Chloride Mini Bag 100 ML IVPB SCH (17:00)
[2020-06-05] MEDS: Azithromycin 250 MG TABLET PO SCH (17:00)
[2020-06-05] MEDS ORDERED: Azithromycin 500 MG in 0.9 % Sodium Chloride 250 ML IVPB SCH (18:00)
[2020-06-06] MEDS: Ampicillin/Sulbactam 3,000 MG in 0.9 % Sodium Chloride Mini Bag 100 ML IVPB SCH ×5 (00:53→23:59)
[2020-06-06] MEDS: *HR* Promethazine 25 MG/ML VIAL IM PRN (04:58)
[2020-06-06] MEDS: *HR* Heparin 5,000 UNIT/ML VIAL SQ SCH ×3 (06:47→20:19)
[2020-06-06 07:12] LABS: Basophils % 0.1 %; Eosinophils % 0.1 %; Hematocrit 42.6 % (37.5-50.1); Hemoglobin 13.7 g/dL (12.9-16.9); Immature Granulocytes % 0.6 % (0-4); Lymphocytes # 3.1 K/mcL (0.6-4.6); Lymphocytes % 21.4 %; Mean Corpuscular HGB Conc 32.2 g/dL (31.6-35.5); Mean Corpuscular Hemoglobin 27.9 pg (28.0-33.3); Mean Corpuscular Volume 86.8 fL (83.0-100.0); Mean Platelet Volume 9.8 fL (9.4-12.4); Monocytes # 1.1 K/mcL (0.0-1.3); Monocytes % 7.7 %; Neutrophils # 10.2 K/mcL (1.6-8.9); Platelet Count 281 K/mcL (140-400); Red Blood Count 4.91 M/mcL (4.19-5.50); Red Cell Distribution Width 13.8 % (11.5-14.5); Segmented Neutrophils % 70.1 %; White Blood Count 14.5 K/mcL (4.3-11.1)
[2020-06-06 07:27] LABS: Alanine Aminotransferase 12 Units/L (7-52); Albumin 3.3 g/dL (3.5-5.7); Alkaline Phosphatase 86 Units/L (34-104); Aspartate Amino Transferase 15 Units/L (13-39); BUN/Creatinine Ratio 22 (6-26); Bilirubin,Indirect 0.2 mg/dL (0.0-1.0); Bilirubin,Total 0.2 mg/dL (0.3-1.0); Blood Urea Nitrogen 23 mg/dL (6-20); Calcium 6.7 mg/dL (8.6-10.3); Carbon Dioxide 29 mEq/L (23-29); Chloride 102 mEq/L (98-107); Chol/HDL Ratio 4.8 (0-4.9); Cholesterol 154 mg/dL (< 200); Globulin 3.2 g/dL (2.4-3.5); Glucose 196 mg/dL (70-105); HDL Cholesterol 32 mg/dL (40-59); LDL Cholesterol,Calculated 74 mg/dL (< 100); Magnesium 1.7 mg/dL (1.6-2.6); Osmolality,Calculated 299 (280-300); Potassium 3.8 mEq/L (3.5-5.1); Sodium 140 mEq/L (136-145); Total Protein 6.5 g/dL (6.4-8.9); Triglycerides 239 mg/dL (< 150); eGFR For African Americans > 60 (> 60); eGFR For Non-African Americans > 60 (> 60)
[2020-06-06] MEDS ORDERED: carvediloL 6.25 MG TABLET PO SCH (08:00)
[2020-06-06] MEDS ORDERED: amLODIPine 5 MG TABLET PO SCH (09:00)
[2020-06-06] MEDS: NIFEdipine XL (24 HR) 60 MG TAB.ER.24 PO SCH (09:33)
[2020-06-06] MEDS: Insulin DETEMIR 100 UNIT/ML X5UNITS SUBQ SCH (09:34)
[2020-06-06] MEDS: Nicotine 21 MG PATCH.TD24 TD SCH (09:34)
[2020-06-06] MEDS: Insulin LISPRO 300 UNITS/3 ML VIAL SUBQ SCH ×4 (09:35→20:20)
[2020-06-06] MEDS ORDERED: *HR* LORazepam 0.5 MG TABLET PO SCH (10:15)
[2020-06-06] MEDS ORDERED: Morphine Sulfate 2 MG/ML SYRINGE IVP PRN (10:16)
[2020-06-06] MEDS ORDERED: Naloxone 0.4 MG/ML INJ IVP PRN (10:17)
[2020-06-06] MEDS ORDERED: carvediloL 6.25 MG TABLET PO ONE (10:35)
[2020-06-06] MEDS ORDERED: METHADONE 120 MG PO SCH (14:45)
[2020-06-06] MEDS: Methadone Oral Concentrate 50 MG/5 ML UDC PO SCH (14:49)
[2020-06-06] MEDS: carvediloL 6.25 MG TABLET PO SCH (17:18)
[2020-06-06] MEDS: Azithromycin 250 MG TABLET PO SCH (17:18)
[2020-06-06] MEDS: Nicotine 2 MG GUM BC PRN (23:58)
[2020-06-07] MEDS: Ampicillin/Sulbactam 3,000 MG in 0.9 % Sodium Chloride Mini Bag 100 ML IVPB SCH (05:03)
[2020-06-07] MEDS: *HR* Heparin 5,000 UNIT/ML VIAL SQ SCH ×3 (05:03→21:08)
[2020-06-07 05:31] LABS: Basophils % 0.3 %; Eosinophils # 0.1 K/mcL (0.0-0.6); Hematocrit 47.5 % (37.5-50.1); Hemoglobin 15.1 g/dL (12.9-16.9); Immature Granulocytes % 0.8 % (0-4); Lymphocytes % 33.6 %; Mean Corpuscular HGB Conc 31.8 g/dL (31.6-35.5); Mean Corpuscular Hemoglobin 27.9 pg (28.0-33.3); Mean Corpuscular Volume 87.6 fL (83.0-100.0); Mean Platelet Volume 9.8 fL (9.4-12.4); Monocytes # 1.1 K/mcL (0.0-1.3); Monocytes % 8.8 %; Neutrophils # 6.6 K/mcL (1.6-8.9); Platelet Count 304 K/mcL (140-400); Red Blood Count 5.42 M/mcL (4.19-5.50); Red Cell Distribution Width 13.6 % (11.5-14.5); Segmented Neutrophils % 55.5 %; White Blood Count 11.9 K/mcL (4.3-11.1)
[2020-06-07 05:51] LABS: BUN/Creatinine Ratio 23 (6-26); Blood Urea Nitrogen 22 mg/dL (6-20); Calcium 7.4 mg/dL (8.6-10.3); Carbon Dioxide 33 mEq/L (23-29); Chloride 98 mEq/L (98-107); Glucose 139 mg/dL (70-105); Magnesium 1.6 mg/dL (1.6-2.6); Osmolality,Calculated 296 (280-300); Potassium 3.9 mEq/L (3.5-5.1); Sodium 140 mEq/L (136-145); eGFR For African Americans > 60 (> 60); eGFR For Non-African Americans > 60 (> 60)
[2020-06-07] MEDS: NIFEdipine XL (24 HR) 60 MG TAB.ER.24 PO SCH (08:57)
[2020-06-07] MEDS: Nicotine 21 MG PATCH.TD24 TD SCH (08:57)
[2020-06-07] MEDS: Insulin DETEMIR 100 UNIT/ML X5UNITS SUBQ SCH (08:58)
[2020-06-07] MEDS: Methadone Oral Concentrate 50 MG/5 ML UDC PO SCH (08:58)
[2020-06-07] MEDS: carvediloL 6.25 MG TABLET PO SCH ×2 (08:58→16:44)
[2020-06-07] MEDS: Insulin LISPRO 300 UNITS/3 ML VIAL SUBQ SCH ×4 (09:02→21:08)
[2020-06-07] MEDS: hydrOXYzine pamoate 25 MG CAPSULE PO PRN (12:08)
[2020-06-07] MEDS: Azithromycin 250 MG TABLET PO SCH (16:44)
[2020-06-07] MEDS: Acetaminophen 325 MG TABLET PO PRN (16:44)
[2020-06-08] MEDS: Acetaminophen 325 MG TABLET PO PRN (00:41)
[2020-06-08] MEDS: Nicotine 2 MG GUM BC PRN ×3 (01:24→21:18)
[2020-06-08] MEDS: *HR* Heparin 5,000 UNIT/ML VIAL SQ SCH ×3 (05:51→21:20)
[2020-06-08] MEDS: Insulin DETEMIR 100 UNIT/ML X5UNITS SUBQ SCH (07:53)
[2020-06-08] MEDS: Nicotine 21 MG PATCH.TD24 TD SCH (07:53)
[2020-06-08] MEDS: Insulin LISPRO 300 UNITS/3 ML VIAL SUBQ SCH ×4 (07:54→21:11)
[2020-06-08] MEDS: carvediloL 6.25 MG TABLET PO SCH ×2 (07:54→16:47)
[2020-06-08] MEDS: NIFEdipine XL (24 HR) 60 MG TAB.ER.24 PO SCH (07:55)
[2020-06-08] MEDS: Methadone Oral Concentrate 50 MG/5 ML UDC PO SCH (07:55)
[2020-06-08] MEDS: hydrOXYzine pamoate 25 MG CAPSULE PO PRN ×3 (14:22→17:40)
[2020-06-09] MEDS: *HR* Heparin 5,000 UNIT/ML VIAL SQ SCH ×3 (05:56→20:10)
[2020-06-09] MEDS: Methadone Oral Concentrate 50 MG/5 ML UDC PO SCH (08:07)
[2020-06-09] MEDS: NIFEdipine XL (24 HR) 60 MG TAB.ER.24 PO SCH (08:08)
[2020-06-09] MEDS: carvediloL 6.25 MG TABLET PO SCH ×2 (08:08→16:53)
[2020-06-09] MEDS: Insulin DETEMIR 100 UNIT/ML X5UNITS SUBQ SCH (08:09)
[2020-06-09] MEDS: Nicotine 21 MG PATCH.TD24 TD SCH (08:09)
[2020-06-09] MEDS: Insulin LISPRO 300 UNITS/3 ML VIAL SUBQ SCH ×4 (08:10→23:18)
[2020-06-09] MEDS ORDERED: Insulin DETEMIR 100 UNIT/ML X5UNITS SUBQ SCH (09:00)
[2020-06-09] MEDS: Nicotine 2 MG GUM BC PRN ×2 (14:53→20:29)
[2020-06-09] MEDS: hydrOXYzine pamoate 25 MG CAPSULE PO PRN ×2 (15:00→20:09)
[2020-06-09] MEDS: *HR* Promethazine 25 MG/ML VIAL IM PRN (20:19)
[2020-06-09] MEDS: Acetaminophen 325 MG TABLET PO PRN (20:19)
[2020-06-10] MEDS: *HR* Heparin 5,000 UNIT/ML VIAL SQ SCH ×3 (06:00→20:28)
[2020-06-10] MEDS: Nicotine 2 MG GUM BC PRN ×3 (06:00→20:32)
[2020-06-10] MEDS: NIFEdipine XL (24 HR) 60 MG TAB.ER.24 PO SCH (09:02)
[2020-06-10] MEDS: carvediloL 6.25 MG TABLET PO SCH ×2 (09:02→17:11)
[2020-06-10] MEDS: Methadone Oral Concentrate 50 MG/5 ML UDC PO SCH (09:02)
[2020-06-10] MEDS: Nicotine 21 MG PATCH.TD24 TD SCH (09:03)
[2020-06-10] MEDS: hydrOXYzine pamoate 25 MG CAPSULE PO PRN (09:08)
[2020-06-10] MEDS: Insulin DETEMIR 100 UNIT/ML X5UNITS SUBQ SCH ×2 (09:09→20:29)
[2020-06-10] MEDS: Insulin LISPRO 300 UNITS/3 ML VIAL SUBQ SCH ×4 (09:10→21:45)
[2020-06-11] MEDS: *HR* Heparin 5,000 UNIT/ML VIAL SQ SCH ×3 (05:33→20:14)
[2020-06-11] MEDS: Methadone Oral Concentrate 50 MG/5 ML UDC PO SCH (08:06)
[2020-06-11] MEDS: carvediloL 6.25 MG TABLET PO SCH ×2 (08:07→17:27)
[2020-06-11] MEDS: Nicotine 21 MG PATCH.TD24 TD SCH (08:08)
[2020-06-11] MEDS: Insulin LISPRO 300 UNITS/3 ML VIAL SUBQ SCH ×4 (08:08→21:15)
[2020-06-11] MEDS: NIFEdipine XL (24 HR) 60 MG TAB.ER.24 PO SCH (08:08)
[2020-06-11] MEDS: Insulin DETEMIR 100 UNIT/ML X5UNITS SUBQ SCH ×2 (08:09→20:18)
[2020-06-11] MEDS: traZODone 50 MG TABLET PO SCH (20:13)
[2020-06-11] MEDS: hydrOXYzine pamoate 25 MG CAPSULE PO PRN (20:13)
[2020-06-11] MEDS: Nicotine 2 MG GUM BC PRN (20:14)
[2020-06-11] MEDS: *HR* Promethazine 25 MG/ML VIAL IM PRN (21:46)
[2020-06-12] MEDS: *HR* Heparin 5,000 UNIT/ML VIAL SQ SCH ×3 (05:38→21:15)
[2020-06-12] MEDS: carvediloL 6.25 MG TABLET PO SCH ×2 (09:05→16:51)
[2020-06-12] MEDS: NIFEdipine XL (24 HR) 60 MG TAB.ER.24 PO SCH (09:05)
[2020-06-12] MEDS: Nicotine 21 MG PATCH.TD24 TD SCH (09:05)
[2020-06-12] MEDS: Insulin LISPRO 300 UNITS/3 ML VIAL SUBQ SCH ×4 (09:06→21:16)
[2020-06-12] MEDS: Methadone Oral Concentrate 50 MG/5 ML UDC PO SCH (09:06)
[2020-06-12] MEDS: Insulin DETEMIR 100 UNIT/ML X5UNITS SUBQ SCH ×2 (09:11→21:15)
[2020-06-12] MEDS: Acetaminophen 325 MG TABLET PO PRN (13:46)
[2020-06-12] MEDS: Nicotine 2 MG GUM BC PRN ×2 (16:51→21:22)
[2020-06-12] MEDS: traZODone 50 MG TABLET PO SCH (21:15)
[2020-06-13] MEDS: *HR* Heparin 5,000 UNIT/ML VIAL SQ SCH ×3 (05:41→21:31)
[2020-06-13] MEDS: Nicotine 21 MG PATCH.TD24 TD SCH (08:55)
[2020-06-13] MEDS: Methadone Oral Concentrate 50 MG/5 ML UDC PO SCH (08:56)
[2020-06-13] MEDS: NIFEdipine XL (24 HR) 60 MG TAB.ER.24 PO SCH (08:56)
[2020-06-13] MEDS: carvediloL 6.25 MG TABLET PO SCH ×2 (08:56→17:33)
[2020-06-13] MEDS: Insulin LISPRO 300 UNITS/3 ML VIAL SUBQ SCH ×4 (08:58→21:29)
[2020-06-13] MEDS: Insulin DETEMIR 100 UNIT/ML X5UNITS SUBQ SCH ×2 (09:10→21:31)
[2020-06-13] MEDS: Nicotine 2 MG GUM BC PRN (17:34)
[2020-06-13] MEDS: traZODone 50 MG TABLET PO SCH (21:31)
[2020-06-14] MEDS: *HR* Heparin 5,000 UNIT/ML VIAL SQ SCH ×3 (05:21→21:47)
[2020-06-14] MEDS: Insulin LISPRO 300 UNITS/3 ML VIAL SUBQ SCH ×4 (08:25→21:44)
[2020-06-14] MEDS: NIFEdipine XL (24 HR) 60 MG TAB.ER.24 PO SCH (08:27)
[2020-06-14] MEDS: carvediloL 6.25 MG TABLET PO SCH ×2 (08:27→16:50)
[2020-06-14] MEDS: Insulin DETEMIR 100 UNIT/ML X5UNITS SUBQ SCH ×2 (08:29→21:44)
[2020-06-14] MEDS: Methadone Oral Concentrate 50 MG/5 ML UDC PO SCH (08:31)
[2020-06-14] MEDS: Nicotine 21 MG PATCH.TD24 TD SCH (08:45)
[2020-06-14] MEDS: Acetaminophen 325 MG TABLET PO PRN (12:06)
[2020-06-14] MEDS: Nicotine 2 MG GUM BC PRN (14:31)
[2020-06-14] MEDS: hydrOXYzine pamoate 25 MG CAPSULE PO PRN (16:50)
[2020-06-14] MEDS: traZODone 50 MG TABLET PO SCH (21:43)
[2020-06-15] MEDS: *HR* Heparin 5,000 UNIT/ML VIAL SQ SCH ×3 (06:14→21:09)
[2020-06-15] MEDS: Insulin DETEMIR 100 UNIT/ML X5UNITS SUBQ SCH ×2 (08:42→21:10)
[2020-06-15] MEDS: Insulin LISPRO 300 UNITS/3 ML VIAL SUBQ SCH ×4 (08:42→21:09)
[2020-06-15] MEDS: NIFEdipine XL (24 HR) 60 MG TAB.ER.24 PO SCH (08:43)
[2020-06-15] MEDS: Methadone Oral Concentrate 50 MG/5 ML UDC PO SCH (08:43)
[2020-06-15] MEDS: carvediloL 6.25 MG TABLET PO SCH ×2 (08:43→17:22)
[2020-06-15] MEDS: Nicotine 21 MG PATCH.TD24 TD SCH (08:43)
[2020-06-15] MEDS: Acetaminophen 325 MG TABLET PO PRN (15:25)
[2020-06-15] MEDS: Nicotine 2 MG GUM BC PRN (17:23)
[2020-06-15] MEDS: traZODone 50 MG TABLET PO SCH (21:09)
[2020-06-16] MEDS: *HR* Heparin 5,000 UNIT/ML VIAL SQ SCH ×3 (06:02→20:55)
[2020-06-16] MEDS: Gabapentin 100 MG CAPSULE PO SCH ×3 (08:54→20:55)
[2020-06-16] MEDS: carvediloL 6.25 MG TABLET PO SCH ×2 (08:54→17:07)
[2020-06-16] MEDS: NIFEdipine XL (24 HR) 60 MG TAB.ER.24 PO SCH (08:55)
[2020-06-16] MEDS: Methadone Oral Concentrate 50 MG/5 ML UDC PO SCH (08:55)
[2020-06-16] MEDS: Insulin LISPRO 300 UNITS/3 ML VIAL SUBQ SCH ×4 (08:56→20:55)
[2020-06-16] MEDS: Nicotine 21 MG PATCH.TD24 TD SCH (08:56)
[2020-06-16] MEDS: Insulin DETEMIR 100 UNIT/ML X5UNITS SUBQ SCH ×2 (08:56→20:55)
[2020-06-16] MEDS: Acetaminophen 325 MG TABLET PO PRN (17:07)
[2020-06-16] MEDS: Nicotine 2 MG GUM BC PRN (17:15)
[2020-06-16] MEDS: traZODone 50 MG TABLET PO SCH (20:55)
[2020-06-17] MEDS: hydrOXYzine pamoate 25 MG CAPSULE PO PRN ×3 (02:04→20:19)
[2020-06-17] MEDS ORDERED: hydrOXYzine pamoate 25 MG CAPSULE PO STA (05:47)
[2020-06-17] MEDS: *HR* Heparin 5,000 UNIT/ML VIAL SQ SCH ×3 (06:01→20:22)
[2020-06-17] MEDS: Insulin LISPRO 300 UNITS/3 ML VIAL SUBQ SCH ×4 (08:08→20:21)
[2020-06-17] MEDS: NIFEdipine XL (24 HR) 60 MG TAB.ER.24 PO SCH (08:09)
[2020-06-17] MEDS: Methadone Oral Concentrate 50 MG/5 ML UDC PO SCH (08:09)
[2020-06-17] MEDS: Gabapentin 100 MG CAPSULE PO SCH ×2 (08:09→14:49)
[2020-06-17] MEDS: Nicotine 21 MG PATCH.TD24 TD SCH (08:10)
[2020-06-17] MEDS: Insulin DETEMIR 100 UNIT/ML X5UNITS SUBQ SCH ×2 (08:10→20:20)
[2020-06-17] MEDS: carvediloL 6.25 MG TABLET PO SCH ×2 (08:10→17:16)
[2020-06-17] MEDS: Nicotine 2 MG GUM BC PRN (11:59)
[2020-06-17] MEDS: traZODone 50 MG TABLET PO SCH (20:19)
[2020-06-17] MEDS ORDERED: Gabapentin 100 MG CAPSULE PO SCH (21:00)
[2020-06-17] MEDS ORDERED: *HR* LORazepam 1 MG TABLET PO ONE (22:15)
[2020-06-18] MEDS: Nicotine 2 MG GUM BC PRN ×3 (00:34→20:29)
[2020-06-18 05:36] LABS: Folate 4.7 ng/mL (3.0-16.0)
[2020-06-18] MEDS: *HR* Heparin 5,000 UNIT/ML VIAL SQ SCH ×3 (06:26→20:29)
[2020-06-18] MEDS: Nicotine 21 MG PATCH.TD24 TD SCH (08:11)
[2020-06-18] MEDS: NIFEdipine XL (24 HR) 60 MG TAB.ER.24 PO SCH (08:11)
[2020-06-18] MEDS: Multivit/Ca/Min/Fe/FA 1 TAB TABLET PO SCH (08:11)
[2020-06-18] MEDS: carvediloL 6.25 MG TABLET PO SCH ×2 (08:11→15:53)
[2020-06-18] MEDS: Gabapentin 100 MG CAPSULE PO SCH ×3 (08:11→20:29)
[2020-06-18] MEDS: Thiamine (B-1) 100 MG TABLET PO SCH (08:11)
[2020-06-18] MEDS: Insulin DETEMIR 100 UNIT/ML X5UNITS SUBQ SCH ×3 (08:12→22:45)
[2020-06-18] MEDS: Insulin LISPRO 300 UNITS/3 ML VIAL SUBQ SCH ×4 (08:12→20:29)
[2020-06-18] MEDS: Methadone Oral Concentrate 50 MG/5 ML UDC PO SCH (08:12)
[2020-06-18 10:31] LABS: BUN/Creatinine Ratio 34 (6-26); Blood Urea Nitrogen 43 mg/dL (6-20); Calcium 8.5 mg/dL (8.6-10.3); Carbon Dioxide 31 mEq/L (23-29); Chloride 99 mEq/L (98-107); Glucose 240 mg/dL (70-105); Osmolality,Calculated 307 (280-300); Potassium 4.5 mEq/L (3.5-5.1); Sodium 139 mEq/L (136-145); eGFR For African Americans > 60 (> 60); eGFR For Non-African Americans 60 (> 60)
[2020-06-18] MEDS: traZODone 50 MG TABLET PO SCH (20:29)
[2020-06-18] MEDS: hydrOXYzine pamoate 25 MG CAPSULE PO PRN (20:40)
[2020-06-18] MEDS ORDERED: Insulin DETEMIR 100 UNIT/ML X5UNITS SUBQ ONE (22:34)
[2020-06-19] MEDS: *HR* Heparin 5,000 UNIT/ML VIAL SQ SCH ×3 (06:01→22:33)
[2020-06-19] MEDS: hydrOXYzine pamoate 25 MG CAPSULE PO PRN ×3 (06:04→22:33)
[2020-06-19] MEDS: Acetaminophen 325 MG TABLET PO PRN ×2 (06:04→11:48)
[2020-06-19] MEDS: Nicotine 2 MG GUM BC PRN ×2 (06:15→22:32)
[2020-06-19] MEDS: Insulin LISPRO 300 UNITS/3 ML VIAL SUBQ SCH ×4 (07:42→22:32)
[2020-06-19] MEDS: Insulin DETEMIR 100 UNIT/ML X5UNITS SUBQ SCH ×2 (07:42→22:32)
[2020-06-19] MEDS: NIFEdipine XL (24 HR) 60 MG TAB.ER.24 PO SCH (07:43)
[2020-06-19] MEDS: Methadone Oral Concentrate 50 MG/5 ML UDC PO SCH (07:43)
[2020-06-19] MEDS: Thiamine (B-1) 100 MG TABLET PO SCH (07:43)
[2020-06-19] MEDS: Multivit/Ca/Min/Fe/FA 1 TAB TABLET PO SCH (07:43)
[2020-06-19] MEDS: Nicotine 21 MG PATCH.TD24 TD SCH (07:43)
[2020-06-19] MEDS: Gabapentin 100 MG CAPSULE PO SCH ×3 (07:44→22:34)
[2020-06-19] MEDS: carvediloL 6.25 MG TABLET PO SCH ×2 (07:44→17:21)
[2020-06-19] MEDS: traZODone 50 MG TABLET PO SCH (22:33)
[2020-06-20] MEDS: *HR* Heparin 5,000 UNIT/ML VIAL SQ SCH ×3 (06:37→21:24)
[2020-06-20] MEDS: NIFEdipine XL (24 HR) 60 MG TAB.ER.24 PO SCH (07:59)
[2020-06-20] MEDS: Multivit/Ca/Min/Fe/FA 1 TAB TABLET PO SCH (07:59)
[2020-06-20] MEDS: hydrOXYzine pamoate 25 MG CAPSULE PO PRN ×2 (07:59→17:43)
[2020-06-20] MEDS: carvediloL 6.25 MG TABLET PO SCH ×2 (07:59→17:44)
[2020-06-20] MEDS: Thiamine (B-1) 100 MG TABLET PO SCH (07:59)
[2020-06-20] MEDS: Gabapentin 100 MG CAPSULE PO SCH ×3 (07:59→21:23)
[2020-06-20] MEDS: Methadone Oral Concentrate 50 MG/5 ML UDC PO SCH (07:59)
[2020-06-20] MEDS: Nicotine 21 MG PATCH.TD24 TD SCH (08:00)
[2020-06-20] MEDS: Insulin LISPRO 300 UNITS/3 ML VIAL SUBQ SCH ×4 (08:04→21:24)
[2020-06-20] MEDS: Insulin DETEMIR 100 UNIT/ML X5UNITS SUBQ SCH ×2 (08:05→21:24)
[2020-06-20] MEDS: Nicotine 2 MG GUM BC PRN ×2 (13:51→21:23)
[2020-06-20] MEDS: Acetaminophen 325 MG TABLET PO PRN (21:23)
[2020-06-20] MEDS: traZODone 50 MG TABLET PO SCH (21:24)
[2020-06-21] MEDS: *HR* Heparin 5,000 UNIT/ML VIAL SQ SCH ×3 (05:24→22:16)
[2020-06-21] MEDS: hydrOXYzine pamoate 25 MG CAPSULE PO PRN ×2 (07:44→15:54)
[2020-06-21] MEDS: Thiamine (B-1) 100 MG TABLET PO SCH (07:44)
[2020-06-21] MEDS: Multivit/Ca/Min/Fe/FA 1 TAB TABLET PO SCH (07:44)
[2020-06-21] MEDS: carvediloL 6.25 MG TABLET PO SCH ×2 (07:44→15:53)
[2020-06-21] MEDS: Gabapentin 100 MG CAPSULE PO SCH ×3 (07:44→22:16)
[2020-06-21] MEDS: Methadone Oral Concentrate 50 MG/5 ML UDC PO SCH (07:45)
[2020-06-21] MEDS: Insulin DETEMIR 100 UNIT/ML X5UNITS SUBQ SCH ×2 (07:45→22:16)
[2020-06-21] MEDS: NIFEdipine XL (24 HR) 60 MG TAB.ER.24 PO SCH (07:45)
[2020-06-21] MEDS: Nicotine 21 MG PATCH.TD24 TD SCH (07:45)
[2020-06-21] MEDS: Insulin LISPRO 300 UNITS/3 ML VIAL SUBQ SCH ×4 (07:46→21:13)
[2020-06-21] MEDS: Nicotine 2 MG GUM BC PRN (17:52)
[2020-06-21] MEDS: traZODone 50 MG TABLET PO SCH (22:16)
[2020-06-22] MEDS: hydrOXYzine pamoate 25 MG CAPSULE PO PRN ×3 (01:04→21:12)
[2020-06-22] MEDS: Nicotine 2 MG GUM BC PRN (01:09)
[2020-06-22 02:10] LABS: Basophils # 0.1 K/mcL (0.0-0.2); Basophils % 0.4 %; Eosinophils # 0.5 K/mcL (0.0-0.6); Eosinophils % 3.8 %; Hematocrit 43.9 % (37.5-50.1); Hemoglobin 13.8 g/dL (12.9-16.9); Immature Granulocytes % 0.9 % (0-4); Lymphocytes # 2.8 K/mcL (0.6-4.6); Lymphocytes % 23.9 %; Mean Corpuscular HGB Conc 31.4 g/dL (31.6-35.5); Mean Corpuscular Hemoglobin 27.7 pg (28.0-33.3); Mean Corpuscular Volume 88.2 fL (83.0-100.0); Mean Platelet Volume 9.4 fL (9.4-12.4); Monocytes # 0.8 K/mcL (0.0-1.3); Monocytes % 7.1 %; Neutrophils # 7.5 K/mcL (1.6-8.9); Platelet Count 286 K/mcL (140-400); Red Blood Count 4.98 M/mcL (4.19-5.50); Red Cell Distribution Width 13.4 % (11.5-14.5); Segmented Neutrophils % 63.9 %; White Blood Count 11.8 K/mcL (4.3-11.1)
[2020-06-22 02:28] LABS: Alanine Aminotransferase 39 Units/L (7-52); Albumin 3.6 g/dL (3.5-5.7); Alkaline Phosphatase 84 Units/L (34-104); Aspartate Amino Transferase 22 Units/L (13-39); BUN/Creatinine Ratio 31 (6-26); Bilirubin,Total 0.2 mg/dL (0.3-1.0); Blood Urea Nitrogen 37 mg/dL (6-20); Calcium 7.8 mg/dL (8.6-10.3); Carbon Dioxide 34 mEq/L (23-29); Chloride 95 mEq/L (98-107); Globulin 3.6 g/dL (2.4-3.5); Glucose 280 mg/dL (70-105); Osmolality,Calculated 303 (280-300); Phosphorous 4.5 mg/dL (2.7-4.5); Potassium 4.2 mEq/L (3.5-5.1); Sodium 137 mEq/L (136-145); Total Protein 7.2 g/dL (6.4-8.9); eGFR For African Americans > 60 (> 60); eGFR For Non-African Americans > 60 (> 60)
[2020-06-22] MEDS: *HR* Heparin 5,000 UNIT/ML VIAL SQ SCH ×3 (05:46→21:13)
[2020-06-22] MEDS: Multivit/Ca/Min/Fe/FA 1 TAB TABLET PO SCH ×2 (08:47→08:55)
[2020-06-22] MEDS: Insulin LISPRO 300 UNITS/3 ML VIAL SUBQ SCH ×7 (08:54→21:13)
[2020-06-22] MEDS: Nicotine 21 MG PATCH.TD24 TD SCH (08:55)
[2020-06-22] MEDS: Thiamine (B-1) 100 MG TABLET PO SCH (08:55)
[2020-06-22] MEDS: lisinopriL 10 MG TABLET PO SCH (08:56)
[2020-06-22] MEDS: Methadone Oral Concentrate 50 MG/5 ML UDC PO SCH (08:56)
[2020-06-22] MEDS: Insulin DETEMIR 100 UNIT/ML X5UNITS SUBQ SCH ×2 (09:01→21:13)
[2020-06-22] MEDS: Gabapentin 100 MG CAPSULE PO SCH ×3 (09:01→21:12)
[2020-06-22] MEDS: NIFEdipine XL (24 HR) 60 MG TAB.ER.24 PO SCH (09:03)
[2020-06-22] MEDS: Calcium Gluconate 1gm/50mL 1 GM/50 ML BAG IVPB SCH ×2 (10:21→14:09)
[2020-06-22] MEDS: traZODone 50 MG TABLET PO SCH (21:13)
[2020-06-23] MEDS: *HR* Heparin 5,000 UNIT/ML VIAL SQ SCH ×3 (05:53→21:02)
[2020-06-23 05:56] LABS: Basophils # 0.1 K/mcL (0.0-0.2); Basophils % 0.5 %; Eosinophils # 0.5 K/mcL (0.0-0.6); Eosinophils % 4.2 %; Hematocrit 45.3 % (37.5-50.1); Hemoglobin 14.2 g/dL (12.9-16.9); Immature Granulocytes % 1.1 % (0-4); Lymphocytes # 2.8 K/mcL (0.6-4.6); Lymphocytes % 25.2 %; Mean Corpuscular HGB Conc 31.3 g/dL (31.6-35.5); Mean Corpuscular Volume 89.2 fL (83.0-100.0); Mean Platelet Volume 9.3 fL (9.4-12.4); Monocytes % 9.2 %; Neutrophils # 6.7 K/mcL (1.6-8.9); Platelet Count 296 K/mcL (140-400); Red Blood Count 5.08 M/mcL (4.19-5.50); Red Cell Distribution Width 13.4 % (11.5-14.5); Segmented Neutrophils % 59.8 %; White Blood Count 11.1 K/mcL (4.3-11.1)
[2020-06-23 06:08] LABS: Alanine Aminotransferase 44 Units/L (7-52); Albumin 3.7 g/dL (3.5-5.7); Alkaline Phosphatase 88 Units/L (34-104); Aspartate Amino Transferase 30 Units/L (13-39); BUN/Creatinine Ratio 32 (6-26); Bilirubin,Total 0.2 mg/dL (0.3-1.0); Blood Urea Nitrogen 37 mg/dL (6-20); Calcium 8.5 mg/dL (8.6-10.3); Carbon Dioxide 36 mEq/L (23-29); Chloride 98 mEq/L (98-107); Globulin 3.7 g/dL (2.4-3.5); Glucose 155 mg/dL (70-105); Magnesium 2.1 mg/dL (1.6-2.6); Osmolality,Calculated 302 (280-300); Phosphorous 5.3 mg/dL (2.7-4.5); Potassium 4.5 mEq/L (3.5-5.1); Sodium 140 mEq/L (136-145); Total Protein 7.4 g/dL (6.4-8.9); eGFR For African Americans > 60 (> 60); eGFR For Non-African Americans > 60 (> 60)
[2020-06-23] MEDS: Thiamine (B-1) 100 MG TABLET PO SCH (08:45)
[2020-06-23] MEDS: Multivit/Ca/Min/Fe/FA 1 TAB TABLET PO SCH (08:45)
[2020-06-23] MEDS: lisinopriL 10 MG TABLET PO SCH (08:45)
[2020-06-23] MEDS: NIFEdipine XL (24 HR) 60 MG TAB.ER.24 PO SCH (08:45)
[2020-06-23] MEDS: Gabapentin 100 MG CAPSULE PO SCH ×3 (08:45→21:02)
[2020-06-23] MEDS: hydrOXYzine pamoate 25 MG CAPSULE PO PRN ×2 (08:49→21:02)
[2020-06-23] MEDS: Methadone Oral Concentrate 50 MG/5 ML UDC PO SCH (08:49)
[2020-06-23] MEDS: Insulin DETEMIR 100 UNIT/ML X5UNITS SUBQ SCH ×2 (08:51→21:02)
[2020-06-23] MEDS: Insulin LISPRO 300 UNITS/3 ML VIAL SUBQ SCH ×7 (08:51→20:51)
[2020-06-23] MEDS: Nicotine 21 MG PATCH.TD24 TD SCH (08:52)
[2020-06-23] MEDS: Nicotine 2 MG GUM BC PRN (16:05)
[2020-06-23] MEDS: traZODone 50 MG TABLET PO SCH (21:02)
[2020-06-24 03:35] LABS: Basophils # 0.1 K/mcL (0.0-0.2); Basophils % 0.4 %; Eosinophils # 0.6 K/mcL (0.0-0.6); Eosinophils % 4.6 %; Hematocrit 44.6 % (37.5-50.1); Hemoglobin 13.9 g/dL (12.9-16.9); Immature Granulocytes % 0.8 % (0-4); Lymphocytes # 3.3 K/mcL (0.6-4.6); Lymphocytes % 27.5 %; Mean Corpuscular HGB Conc 31.2 g/dL (31.6-35.5); Mean Corpuscular Hemoglobin 27.5 pg (28.0-33.3); Mean Corpuscular Volume 88.1 fL (83.0-100.0); Mean Platelet Volume 9.5 fL (9.4-12.4); Monocytes % 8.1 %; Neutrophils # 7.1 K/mcL (1.6-8.9); Platelet Count 269 K/mcL (140-400); Red Blood Count 5.06 M/mcL (4.19-5.50); Red Cell Distribution Width 13.5 % (11.5-14.5); Segmented Neutrophils % 58.6 %; White Blood Count 12.1 K/mcL (4.3-11.1)
[2020-06-24 03:53] LABS: Alanine Aminotransferase 48 Units/L (7-52); Albumin 3.6 g/dL (3.5-5.7); Alkaline Phosphatase 85 Units/L (34-104); Aspartate Amino Transferase 28 Units/L (13-39); BUN/Creatinine Ratio 34 (6-26); Bilirubin,Total 0.2 mg/dL (0.3-1.0); Blood Urea Nitrogen 40 mg/dL (6-20); Calcium 8.4 mg/dL (8.6-10.3); Carbon Dioxide 31 mEq/L (23-29); Chloride 97 mEq/L (98-107); Globulin 3.6 g/dL (2.4-3.5); Glucose 214 mg/dL (70-105); Magnesium 1.9 mg/dL (1.6-2.6); Osmolality,Calculated 298 (280-300); Phosphorous 4.8 mg/dL (2.7-4.5); Potassium 4.4 mEq/L (3.5-5.1); Sodium 136 mEq/L (136-145); Total Protein 7.2 g/dL (6.4-8.9); eGFR For African Americans > 60 (> 60); eGFR For Non-African Americans > 60 (> 60)
[2020-06-24] MEDS: *HR* Heparin 5,000 UNIT/ML VIAL SQ SCH ×3 (05:40→20:19)
[2020-06-24] MEDS: Insulin LISPRO 300 UNITS/3 ML VIAL SUBQ SCH ×7 (08:25→20:26)
[2020-06-24] MEDS: Nicotine 21 MG PATCH.TD24 TD SCH (08:26)
[2020-06-24] MEDS: Thiamine (B-1) 100 MG TABLET PO SCH (08:26)
[2020-06-24] MEDS: NIFEdipine XL (24 HR) 60 MG TAB.ER.24 PO SCH (08:26)
[2020-06-24] MEDS: Gabapentin 100 MG CAPSULE PO SCH ×3 (08:26→20:19)
[2020-06-24] MEDS: lisinopriL 10 MG TABLET PO SCH (08:26)
[2020-06-24] MEDS: Insulin DETEMIR 100 UNIT/ML X5UNITS SUBQ SCH ×2 (08:26→20:19)
[2020-06-24] MEDS: Multivit/Ca/Min/Fe/FA 1 TAB TABLET PO SCH (08:26)
[2020-06-24] MEDS: Methadone Oral Concentrate 50 MG/5 ML UDC PO SCH (08:27)
[2020-06-24] MEDS: hydrOXYzine pamoate 25 MG CAPSULE PO PRN (08:31)
[2020-06-24] MEDS ORDERED: Ketorolac 15 MG/ML VIAL IM ONE (10:01)
[2020-06-24] MEDS: Nicotine 2 MG GUM BC PRN (14:35)
[2020-06-24] MEDS: traZODone 50 MG TABLET PO SCH (20:19)
[2020-06-25] MEDS: hydrOXYzine pamoate 25 MG CAPSULE PO PRN ×2 (02:33→20:13)
[2020-06-25] MEDS: *HR* Heparin 5,000 UNIT/ML VIAL SQ SCH ×2 (04:53→15:04)
[2020-06-25 06:52] LABS: Basophils % 0.3 %; Eosinophils # 0.5 K/mcL (0.0-0.6); Hematocrit 47.3 % (37.5-50.1); Hemoglobin 14.9 g/dL (12.9-16.9); Immature Granulocytes % 0.9 % (0-4); Lymphocytes # 3.2 K/mcL (0.6-4.6); Lymphocytes % 28.4 %; Mean Corpuscular HGB Conc 31.5 g/dL (31.6-35.5); Mean Corpuscular Hemoglobin 27.6 pg (28.0-33.3); Mean Corpuscular Volume 87.8 fL (83.0-100.0); Mean Platelet Volume 9.3 fL (9.4-12.4); Monocytes % 8.7 %; Neutrophils # 6.6 K/mcL (1.6-8.9); Platelet Count 303 K/mcL (140-400); Red Blood Count 5.39 M/mcL (4.19-5.50); Red Cell Distribution Width 13.6 % (11.5-14.5); Segmented Neutrophils % 57.7 %; White Blood Count 11.4 K/mcL (4.3-11.1)
[2020-06-25 07:14] LABS: BUN/Creatinine Ratio 31 (6-26); Blood Urea Nitrogen 36 mg/dL (6-20); Calcium 8.7 mg/dL (8.6-10.3); Carbon Dioxide 35 mEq/L (23-29); Chloride 95 mEq/L (98-107); Glucose 141 mg/dL (70-105); Osmolality,Calculated 295 (280-300); Phosphorous 5.1 mg/dL (2.7-4.5); Potassium 4.2 mEq/L (3.5-5.1); Sodium 137 mEq/L (136-145); eGFR For African Americans > 60 (> 60); eGFR For Non-African Americans > 60 (> 60)
[2020-06-25] MEDS: Insulin LISPRO 300 UNITS/3 ML VIAL SUBQ SCH ×6 (08:44→16:40)
[2020-06-25] MEDS: lisinopriL 10 MG TABLET PO SCH (08:45)
[2020-06-25] MEDS: Multivit/Ca/Min/Fe/FA 1 TAB TABLET PO SCH (08:45)
[2020-06-25] MEDS: Insulin DETEMIR 100 UNIT/ML X5UNITS SUBQ SCH ×2 (08:45→20:12)
[2020-06-25] MEDS: Thiamine (B-1) 100 MG TABLET PO SCH (08:46)
[2020-06-25] MEDS: Nicotine 21 MG PATCH.TD24 TD SCH (08:46)
[2020-06-25] MEDS: Gabapentin 100 MG CAPSULE PO SCH ×3 (08:46→20:10)
[2020-06-25] MEDS: NIFEdipine XL (24 HR) 60 MG TAB.ER.24 PO SCH (08:46)
[2020-06-25] MEDS: Methadone Oral Concentrate 50 MG/5 ML UDC PO SCH (08:47)
[2020-06-25] MEDS: Nicotine 2 MG GUM BC PRN (15:06)
[2020-06-25] MEDS: traZODone 50 MG TABLET PO SCH (20:11)
[2020-06-26] MEDS: Insulin LISPRO 300 UNITS/3 ML VIAL SUBQ SCH ×8 (03:39→20:20)
[2020-06-26] MEDS: *HR* Heparin 5,000 UNIT/ML VIAL SQ SCH ×4 (03:40→21:20)
[2020-06-26] MEDS: Nicotine 2 MG GUM BC PRN ×3 (04:30→23:06)
[2020-06-26] MEDS: Methadone Oral Concentrate 50 MG/5 ML UDC PO SCH (09:24)
[2020-06-26] MEDS: Insulin DETEMIR 100 UNIT/ML X5UNITS SUBQ SCH ×2 (09:24→20:23)
[2020-06-26] MEDS: NIFEdipine XL (24 HR) 60 MG TAB.ER.24 PO SCH (09:25)
[2020-06-26] MEDS: Thiamine (B-1) 100 MG TABLET PO SCH (09:25)
[2020-06-26] MEDS: Gabapentin 100 MG CAPSULE PO SCH ×3 (09:25→20:23)
[2020-06-26] MEDS: Multivit/Ca/Min/Fe/FA 1 TAB TABLET PO SCH (09:25)
[2020-06-26] MEDS: Nicotine 21 MG PATCH.TD24 TD SCH (09:25)
[2020-06-26] MEDS: lisinopriL 10 MG TABLET PO SCH (09:25)
[2020-06-26] MEDS: hydrOXYzine pamoate 25 MG CAPSULE PO PRN ×3 (10:17→23:06)
[2020-06-26] MEDS: traZODone 50 MG TABLET PO SCH (20:23)
[2020-06-27] MEDS: *HR* Heparin 5,000 UNIT/ML VIAL SQ SCH ×3 (05:37→20:40)
[2020-06-27] MEDS: Insulin LISPRO 300 UNITS/3 ML VIAL SUBQ SCH ×7 (08:15→21:30)
[2020-06-27] MEDS: Methadone Oral Concentrate 50 MG/5 ML UDC PO SCH (08:16)
[2020-06-27] MEDS: Thiamine (B-1) 100 MG TABLET PO SCH (08:17)
[2020-06-27] MEDS: lisinopriL 10 MG TABLET PO SCH (08:17)
[2020-06-27] MEDS: Multivit/Ca/Min/Fe/FA 1 TAB TABLET PO SCH (08:17)
[2020-06-27] MEDS: Gabapentin 100 MG CAPSULE PO SCH ×3 (08:17→20:40)
[2020-06-27] MEDS: Insulin DETEMIR 100 UNIT/ML X5UNITS SUBQ SCH ×2 (08:21→20:43)
[2020-06-27] MEDS: Nicotine 21 MG PATCH.TD24 TD SCH (08:21)
[2020-06-27] MEDS: NIFEdipine XL (24 HR) 60 MG TAB.ER.24 PO SCH (08:23)
[2020-06-27] MEDS: hydrOXYzine pamoate 25 MG CAPSULE PO PRN ×2 (09:20→20:39)
[2020-06-27] MEDS: Nicotine 2 MG GUM BC PRN ×2 (09:53→20:40)
[2020-06-27] MEDS: traZODone 50 MG TABLET PO SCH (20:40)
[2020-06-27] MEDS: Melatonin 3 MG TABLET PO PRN (20:43)
[2020-06-28] MEDS: *HR* Heparin 5,000 UNIT/ML VIAL SQ SCH ×3 (05:28→21:23)
[2020-06-28] MEDS: Insulin LISPRO 300 UNITS/3 ML VIAL SUBQ SCH ×7 (07:32→21:16)
[2020-06-28] MEDS: Nicotine 21 MG PATCH.TD24 TD SCH (08:56)
[2020-06-28] MEDS: lisinopriL 10 MG TABLET PO SCH (08:58)
[2020-06-28] MEDS: Insulin DETEMIR 100 UNIT/ML X5UNITS SUBQ SCH ×2 (08:58→21:24)
[2020-06-28] MEDS: NIFEdipine XL (24 HR) 60 MG TAB.ER.24 PO SCH (08:58)
[2020-06-28] MEDS: Gabapentin 100 MG CAPSULE PO SCH ×3 (08:58→21:22)
[2020-06-28] MEDS: Thiamine (B-1) 100 MG TABLET PO SCH (08:58)
[2020-06-28] MEDS: Multivit/Ca/Min/Fe/FA 1 TAB TABLET PO SCH (09:00)
[2020-06-28] MEDS: Methadone Oral Concentrate 50 MG/5 ML UDC PO SCH (09:03)
[2020-06-28] MEDS: hydrOXYzine pamoate 25 MG CAPSULE PO PRN ×2 (09:42→21:22)
[2020-06-28] MEDS: Acetaminophen 325 MG TABLET PO PRN (10:52)
[2020-06-28] MEDS: Nicotine 2 MG GUM BC PRN (10:52)
[2020-06-28] MEDS: traZODone 50 MG TABLET PO SCH (21:22)
[2020-06-28] MEDS: Melatonin 3 MG TABLET PO PRN (21:23)
[2020-06-29] MEDS: *HR* Heparin 5,000 UNIT/ML VIAL SQ SCH (05:39)
[2020-06-29] MEDS: Insulin LISPRO 300 UNITS/3 ML VIAL SUBQ SCH ×4 (07:28→12:13)
[2020-06-29] MEDS: Gabapentin 100 MG CAPSULE PO SCH (10:01)
[2020-06-29] MEDS: Insulin DETEMIR 100 UNIT/ML X5UNITS SUBQ SCH (10:02)
[2020-06-29] MEDS: Nicotine 21 MG PATCH.TD24 TD SCH (10:02)
[2020-06-29] MEDS: Thiamine (B-1) 100 MG TABLET PO SCH (10:03)
[2020-06-29] MEDS: lisinopriL 10 MG TABLET PO SCH (10:03)
[2020-06-29] MEDS: Methadone Oral Concentrate 50 MG/5 ML UDC PO SCH (10:03)
[2020-06-29] MEDS: Multivit/Ca/Min/Fe/FA 1 TAB TABLET PO SCH (10:04)
[2020-06-29] MEDS: NIFEdipine XL (24 HR) 60 MG TAB.ER.24 PO SCH (10:04)
[2020-06-29] MEDS: hydrOXYzine pamoate 25 MG CAPSULE PO PRN (10:28)
[2020-06-29] MEDS: Acetaminophen 325 MG TABLET PO PRN (10:28)
[2020-06-29] MEDS: Nicotine 2 MG GUM BC PRN (10:29)
[2020-06-29 12:00] VITALS: BP 112/72
[2020-06-29] MEDS ORDERED: FLU Vac QV 20-21 (6Month+)/PF 0.5 ML SYRINGE IM ONE (12:10)
[2020-07-01 10:26] LABS: SARS-CoV-2 by NAA NOT DETECTED
== END 2020-06-29 13:39 | DRG 812 ==
LOC: 2ANU 22:47 → EMEROOARM 22:47 → SUATTDRO 06-05 03:19 → 2NNU 06-05 03:29 → SUATTDRO 06-06 15:46 → 3ANU 06-07 14:10
PROVIDERS: ADMIT Internal Medicine; ATTEND Family Medicine

== ENCOUNTER 2020-07-03 19:00 | Observation (INO) ==
[2020-07-03] MEDS ORDERED: Piperacillin/Tazobactam 3.375 GM in Water for inj. (sterile) 20 ML IVP ONE (19:17)
[2020-07-03] MEDS ORDERED: Vancomycin 2,000 MG/520 ML IV.SOLN IVPB ONE (19:17)
[2020-07-03 19:36] LABS: Basophils # 0.1 K/mcL (0.0-0.2); Basophils % 0.3 %; Eosinophils # 0.1 K/mcL (0.0-0.6); Eosinophils % 0.3 %; Hematocrit 45.2 % (37.5-50.1); Hemoglobin 14.5 g/dL (12.9-16.9); Immature Granulocytes % 0.9 % (0-4); Lymphocytes # 3.6 K/mcL (0.6-4.6); Lymphocytes % 18.3 %; Mean Corpuscular HGB Conc 32.1 g/dL (31.6-35.5); Mean Corpuscular Hemoglobin 27.8 pg (28.0-33.3); Mean Corpuscular Volume 86.6 fL (83.0-100.0); Mean Platelet Volume 9.1 fL (9.4-12.4); Monocytes % 10.2 %; Neutrophils # 13.7 K/mcL (1.6-8.9); Platelet Count 408 K/mcL (140-400); Red Blood Count 5.22 M/mcL (4.19-5.50); Red Cell Distribution Width 13.6 % (11.5-14.5); White Blood Count 19.6 K/mcL (4.3-11.1)
[2020-07-03 19:53] LABS: Calcium 7.9 mg/dL (8.6-10.3); Potassium 4.1 mEq/L (3.5-5.1)
[2020-07-03] MEDS ORDERED: 0.9 % Sodium Chloride 1,000 ML IVC ONE ×2 (19:56→20:19)
[2020-07-03] MEDS ORDERED: 0.9 % Sodium Chloride 500 ML IVC ONE (20:19)
[2020-07-03 20:21] LABS: Albumin 4.4 g/dL (3.5-5.7); Albumin/Globulin Ratio 1.2 (1.1-2.2); Bilirubin,Indirect 0.3 mg/dL (0.0-1.0); Bilirubin,Total 0.3 mg/dL (0.3-1.0); Globulin 3.8 g/dL (2.4-3.5); Total Protein 8.2 g/dL (6.4-8.9)
[2020-07-03] MEDS ORDERED: Ondansetron 4 MG/2 ML VIAL IVP PRN (22:15)
[2020-07-03] MEDS ORDERED: Naloxone 0.4 MG/ML INJ IVP PRN (22:15)
[2020-07-03] MEDS ORDERED: Acetaminophen 325 MG TABLET PO PRN (22:15)
[2020-07-03] MEDS ORDERED: Dextrose Gel 15 GM/37.5 ML TUBE PO PRN ×2 (22:20)
[2020-07-03] MEDS ORDERED: *HR* Dextrose 50 % in Water (Vial) 50 ML VIAL IVP PRN (22:20)
[2020-07-03] MEDS ORDERED: D5% in Water 1,000 ML IVC PRN (22:20)
[2020-07-03] MEDS ORDERED: Nicotine 2 MG GUM BC PRN (22:21)
[2020-07-03] MEDS: Ringers Solution, Lactated 1,000 ML IVC SCH (23:32)
[2020-07-03] MEDS: *HR* OxyCODONE Immed Rel 5 MG TABLET PO PRN (23:32)
[2020-07-04] MEDS: Piperacillin/Tazobactam 3.375 GM in 0.9 % Sodium Chloride Mini Bag 100 ML IVPB SCH ×3 (04:15→19:20)
[2020-07-04] MEDS: *HR* Heparin 5,000 UNIT/ML VIAL SQ SCH ×2 (06:27→18:00)
[2020-07-04 06:31] LABS: Basophils % 0.3 %; Eosinophils # 0.3 K/mcL (0.0-0.6); Eosinophils % 2.5 %; Hematocrit 38.9 % (37.5-50.1); Immature Granulocytes % 0.4 % (0-4); Lymphocytes # 2.9 K/mcL (0.6-4.6); Lymphocytes % 25.4 %; Mean Corpuscular HGB Conc 32.6 g/dL (31.6-35.5); Mean Corpuscular Hemoglobin 28.8 pg (28.0-33.3); Mean Corpuscular Volume 88.2 fL (83.0-100.0); Mean Platelet Volume 9.1 fL (9.4-12.4); Monocytes % 9.1 %; Neutrophils # 7.1 K/mcL (1.6-8.9); Platelet Count 286 K/mcL (140-400); Red Blood Count 4.41 M/mcL (4.19-5.50); Red Cell Distribution Width 14.1 % (11.5-14.5); Segmented Neutrophils % 62.3 %; White Blood Count 11.4 K/mcL (4.3-11.1)
[2020-07-04 06:32] LABS: Hemoglobin 12.7 g/dL (12.9-16.9)
[2020-07-04 06:54] LABS: Calcium 6.5 mg/dL (8.6-10.3); Potassium 4.2 mEq/L (3.5-5.1)
[2020-07-04] MEDS: *HR* OxyCODONE Immed Rel 5 MG TABLET PO PRN ×3 (08:18→20:49)
[2020-07-04] MEDS: Nicotine 21 MG PATCH.TD24 TD SCH (08:18)
[2020-07-04] MEDS: Insulin LISPRO 300 UNITS/3 ML VIAL SUBQ SCH ×5 (08:22→18:00)
[2020-07-04 10:28] LABS: Bilirubin,Urine Negative (Negative); Blood,Urine Negative (Negative); Clarity,Urine Clear (Clear); Color,Urine Light-Yellow (Yellow); Glucose,Urine (UA) Normal (Normal); Ketones,Urine Negative (Negative); Leukocyte Esterase,Urine Negative (Negative); Nitrite,Urine Negative (Negative); PH,Urine 5.5 pH Units (5.0-8.0); Protein,Urine Trace mg/dL (Neg-Trace); Specific Gravity,Urine 1.019 (1.010-1.025); Urobilinogen,Urine Normal (Normal)
[2020-07-04 10:37] LABS: Sodium, Urine 53.6 mEq/L
[2020-07-04] MEDS ORDERED: hydrOXYzine pamoate 25 MG CAPSULE PO PRN (10:41)
[2020-07-04] MEDS ORDERED: Nicotine 2 MG GUM BC PRN (10:44)
[2020-07-04] MEDS: Methadone Oral Concentrate 50 MG/5 ML UDC PO SCH (13:01)
[2020-07-04] MEDS: Gabapentin 300 MG CAPSULE PO SCH ×2 (14:06→20:49)
[2020-07-04] MEDS: Ringers Solution, Lactated 1,000 ML IVC SCH (18:00)
[2020-07-04] MEDS ORDERED: Insulin DETEMIR 100 UNIT/ML X5UNITS SUBQ SCH ×2 (21:00)
[2020-07-04] MEDS ORDERED: traZODone 50 MG TABLET PO SCH (21:00)
[2020-07-05] MEDS: Piperacillin/Tazobactam 3.375 GM in 0.9 % Sodium Chloride Mini Bag 100 ML IVPB SCH ×2 (03:22→09:13)
[2020-07-05] MEDS: *HR* Heparin 5,000 UNIT/ML VIAL SQ SCH (04:21)
[2020-07-05] MEDS ORDERED: lisinopriL 10 MG TABLET PO SCH (09:00)
[2020-07-05] MEDS ORDERED: NIFEdipine XL (24 HR) 60 MG TAB.ER.24 PO SCH (09:00)
[2020-07-05] MEDS ORDERED: Insulin DETEMIR 100 UNIT/ML X5UNITS SUBQ SCH (09:00)
[2020-07-05] MEDS: Insulin LISPRO 300 UNITS/3 ML VIAL SUBQ SCH ×4 (09:03→12:37)
[2020-07-05] MEDS: Methadone Oral Concentrate 50 MG/5 ML UDC PO SCH (09:14)
[2020-07-05] MEDS: Nicotine 21 MG PATCH.TD24 TD SCH (09:14)
[2020-07-05] MEDS: Gabapentin 300 MG CAPSULE PO SCH (09:15)
[2020-07-05] MEDS: *HR* OxyCODONE Immed Rel 5 MG TABLET PO PRN (09:16)
[2020-07-05] MEDS ORDERED: NON-FORMULARY MEDICATION 1 EACH EACH (Gabapentin [Neurontin] 600 MG) PO SCH (09:30)
[2020-07-05 10:02] LABS: Basophils % 0.3 %; Eosinophils # 0.4 K/mcL (0.0-0.6); Eosinophils % 3.4 %; Hematocrit 38.6 % (37.5-50.1); Hemoglobin 12.4 g/dL (12.9-16.9); Immature Granulocytes % 0.6 % (0-4); Lymphocytes # 3.1 K/mcL (0.6-4.6); Lymphocytes % 27.1 %; Mean Corpuscular HGB Conc 32.1 g/dL (31.6-35.5); Mean Corpuscular Hemoglobin 27.9 pg (28.0-33.3); Mean Corpuscular Volume 86.9 fL (83.0-100.0); Monocytes # 0.9 K/mcL (0.0-1.3); Monocytes % 7.5 %; Platelet Count 274 K/mcL (140-400); Red Blood Count 4.44 M/mcL (4.19-5.50); Red Cell Distribution Width 13.5 % (11.5-14.5); Segmented Neutrophils % 61.1 %; White Blood Count 11.4 K/mcL (4.3-11.1)
[2020-07-05 10:43] LABS: BUN/Creatinine Ratio 16 (6-26); Blood Urea Nitrogen 19 mg/dL (6-20); Calcium 6.4 mg/dL (8.6-10.3); Carbon Dioxide 28 mEq/L (23-29); Chloride 103 mEq/L (98-107); Glucose 202 mg/dL (70-105); Magnesium 1.7 mg/dL (1.6-2.6); Osmolality,Calculated 292 (280-300); Phosphorous 4.3 mg/dL (2.7-4.5); Sodium 137 mEq/L (136-145); eGFR For African Americans > 60 (> 60); eGFR For Non-African Americans > 60 (> 60)
[2020-07-05 11:04] VITALS: BP 131/91
[2020-07-05] MEDS: Calcium Gluconate 1gm/50mL 1 GM/50 ML BAG IVPB SCH ×2 (12:37→13:17)
== END 2020-07-05 13:54 | disposition home or self-care (01) ==
LOC: EMEROOARM 19:00 → 3BNU 19:00 → SUATTDRO 22:01 → 3BNU 23:05
PROVIDERS: ADMIT Student in an Organized Health Care Education/Training Program; ATTEND Internal Medicine

== ENCOUNTER 2020-10-15 16:19 | Inpatient (IN) ==
[2020-10-15 18:06] LABS: Basophils # 0.1 K/mcL (0.0-0.2); Basophils % 0.3 %; Eosinophils # 0.2 K/mcL (0.0-0.6); Eosinophils % 1.2 %; Hemoglobin 16.5 g/dL (12.9-16.9); Immature Granulocytes % 0.6 % (0-4); Lymphocytes # 3.3 K/mcL (0.6-4.6); Lymphocytes % 21.5 %; Mean Corpuscular HGB Conc 32.4 g/dL (31.6-35.5); Mean Corpuscular Hemoglobin 28.1 pg (28.0-33.3); Mean Corpuscular Volume 86.9 fL (83.0-100.0); Mean Platelet Volume 9.7 fL (9.4-12.4); Monocytes # 1.3 K/mcL (0.0-1.3); Monocytes % 8.6 %; Neutrophils # 10.5 K/mcL (1.6-8.9); Platelet Count 338 K/mcL (140-400); Red Blood Count 5.87 M/mcL (4.19-5.50); Red Cell Distribution Width 14.2 % (11.5-14.5); Segmented Neutrophils % 67.8 %; White Blood Count 15.5 K/mcL (4.3-11.1)
[2020-10-15 18:35] LABS: Alanine Aminotransferase 18 Units/L (7-52); Albumin 3.9 g/dL (3.5-5.7); Alkaline Phosphatase 111 Units/L (34-104); Aspartate Amino Transferase 20 Units/L (13-39); BUN/Creatinine Ratio 24 (6-26); Bilirubin,Total 0.3 mg/dL (0.3-1.0); Blood Urea Nitrogen 60 mg/dL (6-20); Calcium 7.6 mg/dL (8.6-10.3); Carbon Dioxide 25 mEq/L (23-29); Chloride 97 mEq/L (98-107); Globulin 3.8 g/dL (2.4-3.5); Glucose 110 mg/dL (70-105); Osmolality,Calculated 298 (280-300); Potassium 3.9 mEq/L (3.5-5.1); Sodium 135 mEq/L (136-145); Total Protein 7.7 g/dL (6.4-8.9); Troponin I < 0.03 ng/mL (< 0.04); eGFR For African Americans 33 (> 60); eGFR For Non-African Americans 27 (> 60)
[2020-10-15 18:56] LABS: Bilirubin,Urine Negative (Negative); Blood,Urine Negative (Negative); Clarity,Urine Clear (Clear); Color,Urine Light-Yellow (Yellow); Glucose,Urine (UA) Normal (Normal); Ketones,Urine Negative (Negative); Leukocyte Esterase,Urine Negative (Negative); Nitrite,Urine Negative (Negative); PH,Urine 5.5 pH Units (5.0-8.0); Protein,Urine Trace mg/dL (Neg-Trace); Specific Gravity,Urine 1.018 (1.010-1.025); Urobilinogen,Urine Normal (Normal)
[2020-10-15] MEDS ORDERED: 0.9 % Sodium Chloride 500 ML IV ONE (19:17)
[2020-10-16 01:31] LABS: Adenovirus Not Detected (Not Detect); Bordetella Pertussis Not Detected (Not Detect); Chlamydophila pneumoniae Not Detected (Not Detect); Coronavirus 229E Not Detected (Not Detect); Coronavirus HKU1 Not Detected (Not Detect); Coronavirus NL63 Not Detected (Not Detect); Coronavirus OC43 Not Detected (Not Detect); Human Metapneumovirus Not Detected (Not Detect); Human Rhinovirus/Enterovirus Not Detected (Not Detect); Influenza A Subtype 2009 H1 Not Detected (Not Detect); Influenza B Not Detected (Not Detect); Mycoplasma pneumoniae Not Detected (Not Detect); Parainfluenza Virus 1 Not Detected (Not Detect); Parainfluenza Virus 2 Not Detected (Not Detect); Parainfluenza Virus 3 Not Detected (Not Detect); Parainfluenza Virus 4 Not Detected (Not Detect); Respiratory Syncytial Virus Not Detected (Not Detect); SARS-CoV-2 Not Detected (Not Detect)
[2020-10-16] MEDS ORDERED: Albuterol 2.5 MG/3 ML NEBULIZER IH PRN (01:51)
[2020-10-16] MEDS ORDERED: Naloxone 0.4 MG/ML INJ IVP PRN (01:52)
[2020-10-16] MEDS ORDERED: Melatonin 3 MG TABLET PO PRN (01:52)
[2020-10-16] MEDS ORDERED: D5% in Water 1,000 ML IVC PRN (01:55)
[2020-10-16] MEDS ORDERED: Dextrose Gel 15 GM/37.5 ML TUBE PO PRN ×2 (01:55)
[2020-10-16] MEDS ORDERED: *HR* Dextrose 50 % in Water (Vial) 50 ML VIAL IVP PRN (01:55)
[2020-10-16] MEDS: 0.9 % Sodium Chloride 1,000 ML IVC SCH ×2 (02:43→18:42)
[2020-10-16] MEDS: Albuterol 2.5 MG/3 ML NEBULIZER IH SCH ×3 (03:26→11:06)
[2020-10-16 03:27] LABS: Estimated Average Glucose 169 mg/dl; Hemoglobin A1C 7.5 %
[2020-10-16] MEDS: hydrOXYzine pamoate 25 MG CAPSULE PO PRN ×3 (04:17→22:56)
[2020-10-16] MEDS: Ondansetron 4 MG/2 ML VIAL IVP PRN ×2 (04:22→21:16)
[2020-10-16 08:07] LABS: Basophils % 0.3 %; Eosinophils # 0.1 K/mcL (0.0-0.6); Eosinophils % 1.2 %; Hematocrit 51.5 % (37.5-50.1); Immature Granulocytes % 0.5 % (0-4); Lymphocytes # 2.1 K/mcL (0.6-4.6); Lymphocytes % 18.4 %; Mean Corpuscular Hemoglobin 29.1 pg (28.0-33.3); Mean Platelet Volume 9.5 fL (9.4-12.4); Monocytes # 1.1 K/mcL (0.0-1.3); Monocytes % 9.4 %; Platelet Count 341 K/mcL (140-400); Red Blood Count 5.85 M/mcL (4.19-5.50); Red Cell Distribution Width 14.3 % (11.5-14.5); Segmented Neutrophils % 70.2 %; White Blood Count 11.5 K/mcL (4.3-11.1)
[2020-10-16] MEDS ORDERED: Azithromycin 250 MG TABLET PO SCH (09:00)
[2020-10-16] MEDS: lisinopriL 10 MG TABLET PO SCH (09:01)
[2020-10-16] MEDS: NIFEdipine XL (24 HR) 60 MG TAB.ER.24 PO SCH (09:01)
[2020-10-16] MEDS: Insulin LISPRO 300 UNITS/3 ML VIAL SUBQ SCH ×4 (09:01→20:53)
[2020-10-16] MEDS: predniSONE 20 MG TABLET PO SCH (09:01)
[2020-10-16] MEDS: Gabapentin 300 MG CAPSULE PO SCH ×3 (09:01→20:54)
[2020-10-16] MEDS: Nicotine 21 MG PATCH.TD24 TD SCH (09:02)
[2020-10-16 09:46] LABS: Albumin 3.7 g/dL (3.5-5.7); Albumin/Globulin Ratio 1.1 (1.1-2.2); Bilirubin,Total 0.4 mg/dL (0.3-1.0); Globulin 3.5 g/dL (2.4-3.5); Phosphorous 3.5 mg/dL (2.7-4.5); Potassium 4.2 mEq/L (3.5-5.1); Total Protein 7.2 g/dL (6.4-8.9)
[2020-10-16 12:41] LABS: Amphetamine Screen,Urine Negative ng/mL (Cutoff=1000); Barbiturate Screen,Urine Negative ng/mL (Cutoff=200); Benzodiazepines Screen,Urine Negative ng/mL (Cutoff=200); Cannabinoid Screen,Urine Negative ng/mL (Cutoff = 50); Cocaine Screen,Urine Negative ng/mL (Cutoff= 300); Opiate Screen,Urine Negative ng/mL (Cutoff=300); Phencyclidine Screen,Urine Negative ng/mL (Cutoff=25)
[2020-10-16] MEDS ORDERED: Ipratropium/Albuterol Neb 3 ML IH PRN (13:29)
[2020-10-16] MEDS: cefTRIAXone 2,000 MG in Water for inj. (sterile) 20 ML IVP SCH (14:23)
[2020-10-16] MEDS: Ipratropium/Albuterol Neb 3 ML IH SCH ×2 (15:26→21:46)
[2020-10-16] MEDS: Furosemide 20 MG TABLET PO SCH (18:41)
[2020-10-16] MEDS: traZODone 50 MG TABLET PO SCH (20:54)
[2020-10-16] MEDS: Insulin DETEMIR 100 UNIT/ML X5UNITS SUBQ SCH (20:54)
[2020-10-16] MEDS ORDERED: Insulin DETEMIR 100 UNIT/ML X5UNITS SUBQ SCH (21:00)
[2020-10-16] MEDS: Budesonide/Formoterol 160/4.5 1 PUFF INH IH SCH (21:46)
[2020-10-17 03:10] LABS: Basophils % 0.2 %; Eosinophils # 0.1 K/mcL (0.0-0.6); Eosinophils % 0.3 %; Immature Granulocytes % 0.5 % (0-4); Lymphocytes # 2.8 K/mcL (0.6-4.6); Lymphocytes % 14.4 %; Mean Corpuscular HGB Conc 31.9 g/dL (31.6-35.5); Mean Corpuscular Hemoglobin 27.9 pg (28.0-33.3); Mean Corpuscular Volume 87.4 fL (83.0-100.0); Mean Platelet Volume 9.6 fL (9.4-12.4); Monocytes # 1.3 K/mcL (0.0-1.3); Monocytes % 6.9 %; Platelet Count 332 K/mcL (140-400); Red Blood Count 5.49 M/mcL (4.19-5.50); Red Cell Distribution Width 14.1 % (11.5-14.5); Segmented Neutrophils % 77.7 %
[2020-10-17 03:13] LABS: Hemoglobin 15.3 g/dL (12.9-16.9); Neutrophils # 14.9 K/mcL (1.6-8.9); White Blood Count 19.2 K/mcL (4.3-11.1)
[2020-10-17 03:26] LABS: Magnesium 1.6 mg/dL (1.6-2.6); Phosphorous 4.2 mg/dL (2.7-4.5)
[2020-10-17 03:27] LABS: BUN/Creatinine Ratio 29 (6-26); Blood Urea Nitrogen 38 mg/dL (6-20); Calcium 6.8 mg/dL (8.6-10.3); Carbon Dioxide 26 mEq/L (23-29); Chloride 100 mEq/L (98-107); Glucose 252 mg/dL (70-105); Osmolality,Calculated 304 (280-300); Potassium 3.6 mEq/L (3.5-5.1); Sodium 138 mEq/L (136-145); eGFR For African Americans > 60 (> 60); eGFR For Non-African Americans 57 (> 60)
[2020-10-17] MEDS: Ipratropium/Albuterol Neb 3 ML IH SCH ×4 (03:35→21:15)
[2020-10-17] MEDS: hydrOXYzine pamoate 25 MG CAPSULE PO PRN (05:07)
[2020-10-17] MEDS: Insulin LISPRO 300 UNITS/3 ML VIAL SUBQ SCH ×4 (08:44→21:37)
[2020-10-17] MEDS ORDERED: Doxycycline 100 MG CAPSULE PO SCH (09:00)
[2020-10-17] MEDS: 0.9 % Sodium Chloride 1,000 ML IVC SCH (09:01)
[2020-10-17] MEDS: Venlafaxine XR (24 HR) 75 MG CAP.ER.24H PO SCH (09:02)
[2020-10-17] MEDS: predniSONE 20 MG TABLET PO SCH (09:03)
[2020-10-17] MEDS: NIFEdipine XL (24 HR) 60 MG TAB.ER.24 PO SCH (09:03)
[2020-10-17] MEDS: lisinopriL 10 MG TABLET PO SCH (09:03)
[2020-10-17] MEDS: Gabapentin 300 MG CAPSULE PO SCH ×3 (09:03→21:39)
[2020-10-17] MEDS: hydroCHLOROthiazide 25 MG TABLET PO SCH (09:03)
[2020-10-17] MEDS: Furosemide 20 MG TABLET PO SCH ×2 (09:03→17:32)
[2020-10-17] MEDS: Nicotine 21 MG PATCH.TD24 TD SCH (09:04)
[2020-10-17] MEDS: Insulin DETEMIR 100 UNIT/ML X5UNITS SUBQ SCH ×2 (09:04→21:38)
[2020-10-17] MEDS: Calcium Gluconate 1gm/50mL 1 GM/50 ML BAG IVPB SCH ×2 (09:11→10:31)
[2020-10-17] MEDS: Methadone Oral Concentrate 50 MG/5 ML UDC PO SCH (10:31)
[2020-10-17] MEDS: Budesonide/Formoterol 160/4.5 1 PUFF INH IH SCH ×2 (10:34→21:15)
[2020-10-17] MEDS: Ondansetron 4 MG/2 ML VIAL IVP PRN (11:01)
[2020-10-17] MEDS: cefTRIAXone 2,000 MG in Water for inj. (sterile) 20 ML IVP SCH (14:59)
[2020-10-17] MEDS: polyethylene glycoL 3350 17 GM POWD.PACK PO SCH (21:36)
[2020-10-17] MEDS: Sennosides/Docusate Sodium TABLET PO SCH (21:39)
[2020-10-17] MEDS: traZODone 50 MG TABLET PO SCH (21:39)
[2020-10-18 03:16] LABS: Basophils % 0.2 %; Eosinophils % 0.2 %; Hematocrit 47.9 % (37.5-50.1); Hemoglobin 15.2 g/dL (12.9-16.9); Immature Granulocytes % 0.6 % (0-4); Lymphocytes # 2.9 K/mcL (0.6-4.6); Lymphocytes % 14.1 %; Mean Corpuscular HGB Conc 31.7 g/dL (31.6-35.5); Mean Corpuscular Hemoglobin 27.7 pg (28.0-33.3); Mean Corpuscular Volume 87.4 fL (83.0-100.0); Mean Platelet Volume 9.9 fL (9.4-12.4); Monocytes # 1.7 K/mcL (0.0-1.3); Monocytes % 8.5 %; Neutrophils # 15.6 K/mcL (1.6-8.9); Platelet Count 326 K/mcL (140-400); Red Blood Count 5.48 M/mcL (4.19-5.50); Segmented Neutrophils % 76.4 %; White Blood Count 20.4 K/mcL (4.3-11.1)
[2020-10-18] MEDS: Ipratropium/Albuterol Neb 3 ML IH SCH ×4 (03:20→21:50)
[2020-10-18 03:35] LABS: Alanine Aminotransferase 17 Units/L (7-52); Albumin 3.7 g/dL (3.5-5.7); Alkaline Phosphatase 94 Units/L (34-104); Aspartate Amino Transferase 13 Units/L (13-39); BUN/Creatinine Ratio 28 (6-26); Bilirubin,Total 0.2 mg/dL (0.3-1.0); Blood Urea Nitrogen 35 mg/dL (6-20); Calcium 7.9 mg/dL (8.6-10.3); Carbon Dioxide 31 mEq/L (23-29); Chloride 96 mEq/L (98-107); Globulin 3.6 g/dL (2.4-3.5); Glucose 164 mg/dL (70-105); Magnesium 1.5 mg/dL (1.6-2.6); Osmolality,Calculated 298 (280-300); Phosphorous 5.8 mg/dL (2.7-4.5); Potassium 3.5 mEq/L (3.5-5.1); Sodium 138 mEq/L (136-145); Total Protein 7.3 g/dL (6.4-8.9); eGFR For African Americans > 60 (> 60); eGFR For Non-African Americans 60 (> 60)
[2020-10-18] MEDS: hydroCHLOROthiazide 25 MG TABLET PO SCH (08:20)
[2020-10-18] MEDS: Venlafaxine XR (24 HR) 75 MG CAP.ER.24H PO SCH (08:20)
[2020-10-18] MEDS: Gabapentin 300 MG CAPSULE PO SCH ×3 (08:20→20:56)
[2020-10-18] MEDS: Insulin LISPRO 300 UNITS/3 ML VIAL SUBQ SCH ×4 (08:21→20:55)
[2020-10-18] MEDS: Furosemide 20 MG TABLET PO SCH ×2 (08:21→16:37)
[2020-10-18] MEDS: predniSONE 20 MG TABLET PO SCH (08:21)
[2020-10-18] MEDS: Nicotine 21 MG PATCH.TD24 TD SCH (08:21)
[2020-10-18] MEDS: lisinopriL 10 MG TABLET PO SCH (08:21)
[2020-10-18] MEDS: NIFEdipine XL (24 HR) 60 MG TAB.ER.24 PO SCH (08:21)
[2020-10-18] MEDS: Sennosides/Docusate Sodium TABLET PO SCH ×2 (08:22→20:56)
[2020-10-18] MEDS: polyethylene glycoL 3350 17 GM POWD.PACK PO SCH (08:22)
[2020-10-18] MEDS: Methadone Oral Concentrate 50 MG/5 ML UDC PO SCH (08:28)
[2020-10-18] MEDS: Insulin DETEMIR 100 UNIT/ML X5UNITS SUBQ SCH ×2 (08:29→20:55)
[2020-10-18] MEDS: Azithromycin 250 MG TABLET PO SCH (10:26)
[2020-10-18] MEDS: Budesonide/Formoterol 160/4.5 1 PUFF INH IH SCH ×2 (10:54→21:50)
[2020-10-18] MEDS: traZODone 50 MG TABLET PO SCH (20:56)
[2020-10-19 01:39] LABS: Basophils # 0.1 K/mcL (0.0-0.2); Basophils % 0.2 %; Eosinophils # 0.1 K/mcL (0.0-0.6); Eosinophils % 0.2 %; Hematocrit 47.7 % (37.5-50.1); Hemoglobin 15.4 g/dL (12.9-16.9); Immature Granulocytes % 0.7 % (0-4); Lymphocytes # 3.4 K/mcL (0.6-4.6); Lymphocytes % 16.1 %; Mean Corpuscular HGB Conc 32.3 g/dL (31.6-35.5); Mean Corpuscular Hemoglobin 27.9 pg (28.0-33.3); Mean Corpuscular Volume 86.6 fL (83.0-100.0); Mean Platelet Volume 9.7 fL (9.4-12.4); Monocytes # 1.8 K/mcL (0.0-1.3); Monocytes % 8.3 %; Neutrophils # 15.8 K/mcL (1.6-8.9); Platelet Count 325 K/mcL (140-400); Red Blood Count 5.51 M/mcL (4.19-5.50); Red Cell Distribution Width 14.1 % (11.5-14.5); Segmented Neutrophils % 74.5 %; White Blood Count 21.3 K/mcL (4.3-11.1)
[2020-10-19 01:56] LABS: Alanine Aminotransferase 17 Units/L (7-52); Albumin 3.7 g/dL (3.5-5.7); Albumin/Globulin Ratio 0.9 (1.1-2.2); Alkaline Phosphatase 94 Units/L (34-104); Aspartate Amino Transferase 15 Units/L (13-39); BUN/Creatinine Ratio 29 (6-26); Bilirubin,Total 0.2 mg/dL (0.3-1.0); Blood Urea Nitrogen 43 mg/dL (6-20); Calcium 7.8 mg/dL (8.6-10.3); Carbon Dioxide 33 mEq/L (23-29); Chloride 94 mEq/L (98-107); Glucose 152 mg/dL (70-105); Magnesium 1.8 mg/dL (1.6-2.6); Osmolality,Calculated 298 (280-300); Phosphorous 5.8 mg/dL (2.7-4.5); Potassium 4.1 mEq/L (3.5-5.1); Sodium 137 mEq/L (136-145); Total Protein 7.7 g/dL (6.4-8.9); eGFR For African Americans > 60 (> 60); eGFR For Non-African Americans 50 (> 60)
[2020-10-19] MEDS: Ipratropium/Albuterol Neb 3 ML IH SCH ×4 (03:51→22:07)
[2020-10-19] MEDS: Insulin LISPRO 300 UNITS/3 ML VIAL SUBQ SCH ×4 (08:02→19:22)
[2020-10-19] MEDS: Gabapentin 300 MG CAPSULE PO SCH ×3 (08:46→21:51)
[2020-10-19] MEDS: predniSONE 20 MG TABLET PO SCH (08:46)
[2020-10-19] MEDS: Insulin DETEMIR 100 UNIT/ML X5UNITS SUBQ SCH ×2 (08:46→21:49)
[2020-10-19] MEDS: NIFEdipine XL (24 HR) 60 MG TAB.ER.24 PO SCH (08:47)
[2020-10-19] MEDS: Azithromycin 250 MG TABLET PO SCH (08:47)
[2020-10-19] MEDS: Nicotine 21 MG PATCH.TD24 TD SCH (08:47)
[2020-10-19] MEDS: hydroCHLOROthiazide 25 MG TABLET PO SCH (08:47)
[2020-10-19] MEDS: Venlafaxine XR (24 HR) 75 MG CAP.ER.24H PO SCH (08:47)
[2020-10-19] MEDS: Methadone Oral Concentrate 50 MG/5 ML UDC PO SCH (08:48)
[2020-10-19] MEDS: Sennosides/Docusate Sodium TABLET PO SCH ×2 (08:48→21:50)
[2020-10-19] MEDS: polyethylene glycoL 3350 17 GM POWD.PACK PO SCH (08:48)
[2020-10-19] MEDS: lisinopriL 10 MG TABLET PO SCH (08:48)
[2020-10-19] MEDS: Furosemide 20 MG TABLET PO SCH ×2 (08:49→17:11)
[2020-10-19] MEDS: Budesonide/Formoterol 160/4.5 1 PUFF INH IH SCH ×2 (10:08→22:06)
[2020-10-19] MEDS: Ondansetron 4 MG/2 ML VIAL IVP PRN ×2 (14:38→22:10)
[2020-10-19] MEDS: hydrOXYzine pamoate 25 MG CAPSULE PO PRN (14:40)
[2020-10-19] MEDS ORDERED: 0.9 % Sodium Chloride 1,000 ML IVC ONE (18:31)
[2020-10-19] MEDS: traZODone 50 MG TABLET PO SCH (21:50)
[2020-10-20] MEDS: Ipratropium/Albuterol Neb 3 ML IH SCH ×4 (03:56→22:25)
[2020-10-20 05:42] LABS: Basophils % 0.2 %; Eosinophils % 0.2 %; Hematocrit 47.1 % (37.5-50.1); Hemoglobin 15.2 g/dL (12.9-16.9); Immature Granulocytes % 0.7 % (0-4); Lymphocytes # 4.4 K/mcL (0.6-4.6); Lymphocytes % 21.7 %; Mean Corpuscular HGB Conc 32.3 g/dL (31.6-35.5); Mean Corpuscular Hemoglobin 28.3 pg (28.0-33.3); Mean Corpuscular Volume 87.5 fL (83.0-100.0); Mean Platelet Volume 9.8 fL (9.4-12.4); Monocytes # 1.5 K/mcL (0.0-1.3); Monocytes % 7.2 %; Neutrophils # 14.1 K/mcL (1.6-8.9); Platelet Count 342 K/mcL (140-400); Red Blood Count 5.38 M/mcL (4.19-5.50); Red Cell Distribution Width 14.3 % (11.5-14.5); White Blood Count 20.1 K/mcL (4.3-11.1)
[2020-10-20 06:17] LABS: Albumin 3.9 g/dL (3.5-5.7); Albumin/Globulin Ratio 1.1 (1.1-2.2); Bilirubin,Total 0.4 mg/dL (0.3-1.0); Calcium 7.8 mg/dL (8.6-10.3); Globulin 3.4 g/dL (2.4-3.5); Magnesium 1.9 mg/dL (1.6-2.6); Phosphorous 6.9 mg/dL (2.7-4.5); Potassium 3.7 mEq/L (3.5-5.1); Total Protein 7.3 g/dL (6.4-8.9)
[2020-10-20 06:44] LABS: Reactive Lymphocytes Present (Not Present)
[2020-10-20 06:45] LABS: Platelet Estimate Normal (Normal)
[2020-10-20] MEDS: Methadone Oral Concentrate 50 MG/5 ML UDC PO SCH (07:33)
[2020-10-20] MEDS: Venlafaxine XR (24 HR) 75 MG CAP.ER.24H PO SCH (07:34)
[2020-10-20] MEDS ORDERED: 0.9 % Sodium Chloride 500 ML IVC ONE (07:34)
[2020-10-20] MEDS: predniSONE 20 MG TABLET PO SCH (07:35)
[2020-10-20] MEDS: Gabapentin 300 MG CAPSULE PO SCH (07:35)
[2020-10-20] MEDS: Azithromycin 250 MG TABLET PO SCH (07:35)
[2020-10-20] MEDS: Nicotine 21 MG PATCH.TD24 TD SCH (07:35)
[2020-10-20] MEDS: 0.9 % Sodium Chloride 1,000 ML IVC SCH ×2 (07:37→20:50)
[2020-10-20] MEDS: Insulin LISPRO 300 UNITS/3 ML VIAL SUBQ SCH ×4 (07:37→20:55)
[2020-10-20] MEDS: hydroCHLOROthiazide 25 MG TABLET PO SCH (07:38)
[2020-10-20] MEDS: Insulin DETEMIR 100 UNIT/ML X5UNITS SUBQ SCH ×2 (07:38→20:56)
[2020-10-20] MEDS: Sennosides/Docusate Sodium TABLET PO SCH ×2 (07:38→20:55)
[2020-10-20] MEDS: NIFEdipine XL (24 HR) 60 MG TAB.ER.24 PO SCH (07:38)
[2020-10-20] MEDS: polyethylene glycoL 3350 17 GM POWD.PACK PO SCH (07:38)
[2020-10-20] MEDS: Nicotine 2 MG GUM BC PRN (07:39)
[2020-10-20] MEDS: lisinopriL 10 MG TABLET PO SCH (07:39)
[2020-10-20] MEDS ORDERED: *HR* LORazepam 2 MG/ML VIAL IVP ONE (09:05)
[2020-10-20] MEDS: Budesonide/Formoterol 160/4.5 1 PUFF INH IH SCH ×2 (10:19→22:25)
[2020-10-20] MEDS: Piperacillin/Tazobactam 3.375 GM in 0.9 % Sodium Chloride Mini Bag 100 ML IVPB SCH ×3 (11:16→20:57)
[2020-10-20 13:26] LABS: ABG Base Excess 0 mEq/L (-2 to 3); ABG HCO3 28 mEq/L (21-27); ABG Oxygen Saturation 92 % (95-98); ABG PCO2 53 mmHg (35-45); ABG PH 7.32 pH Units (7.32-7.45); ABG PO2 70 mmHg (85-104); ABG TCO2 29 mEq/L (20-26)
[2020-10-20] MEDS: Haloperidol Lactate 5 MG/ML VIAL IVP PRN (14:23)
[2020-10-20] MEDS: Thiamine (B-1) 100 MG TABLET PO SCH (17:22)
[2020-10-20 17:25] LABS: Thyroid Stimulating Hormone 1.006 mcIU/mL (0.340-5.600)
[2020-10-20 17:37] LABS: Folate 10.6 ng/mL (3.0-16.0)
[2020-10-20] MEDS: traZODone 50 MG TABLET PO SCH (20:55)
[2020-10-21] MEDS: Ipratropium/Albuterol Neb 3 ML IH SCH ×4 (03:50→22:58)
[2020-10-21] MEDS: Methadone Oral Concentrate 50 MG/5 ML UDC PO SCH (04:55)
[2020-10-21] MEDS: Piperacillin/Tazobactam 3.375 GM in 0.9 % Sodium Chloride Mini Bag 100 ML IVPB SCH ×3 (04:56→20:38)
[2020-10-21 05:51] LABS: Hematocrit 44.3 % (37.5-50.1); Hemoglobin 14.3 g/dL (12.9-16.9); Mean Corpuscular HGB Conc 32.3 g/dL (31.6-35.5); Mean Corpuscular Hemoglobin 28.5 pg (28.0-33.3); Mean Corpuscular Volume 88.2 fL (83.0-100.0); Mean Platelet Volume 9.6 fL (9.4-12.4); Platelet Count 290 K/mcL (140-400); Red Blood Count 5.02 M/mcL (4.19-5.50); Red Cell Distribution Width 14.1 % (11.5-14.5); Segmented Neutrophils % 66.5 %; White Blood Count 14.4 K/mcL (4.3-11.1)
[2020-10-21 05:52] LABS: Basophils % 0.2 %; Eosinophils # 0.2 K/mcL (0.0-0.6); Eosinophils % 1.1 %; Immature Granulocytes % 0.7 % (0-4); Lymphocytes # 3.5 K/mcL (0.6-4.6); Lymphocytes % 23.9 %; Monocytes # 1.1 K/mcL (0.0-1.3); Monocytes % 7.6 %; Neutrophils # 9.6 K/mcL (1.6-8.9)
[2020-10-21 06:11] LABS: BUN/Creatinine Ratio 37 (6-26); Blood Urea Nitrogen 53 mg/dL (6-20); Calcium 7.1 mg/dL (8.6-10.3); Carbon Dioxide 31 mEq/L (23-29); Chloride 103 mEq/L (98-107); Glucose 75 mg/dL (70-105); Magnesium 1.9 mg/dL (1.6-2.6); Osmolality,Calculated 307 (280-300); Phosphorous 4.9 mg/dL (2.7-4.5); Potassium 3.9 mEq/L (3.5-5.1); Sodium 142 mEq/L (136-145); eGFR For African Americans > 60 (> 60); eGFR For Non-African Americans 53 (> 60)
[2020-10-21] MEDS: Budesonide/Formoterol 160/4.5 1 PUFF INH IH SCH ×2 (07:48→22:58)
[2020-10-21] MEDS: Nicotine 21 MG PATCH.TD24 TD SCH (10:31)
[2020-10-21] MEDS: hydrOXYzine pamoate 25 MG CAPSULE PO PRN ×3 (10:32→23:20)
[2020-10-21] MEDS: Sennosides/Docusate Sodium TABLET PO SCH ×2 (10:32→20:37)
[2020-10-21] MEDS: Benzonatate 100 MG CAPSULE PO PRN (10:32)
[2020-10-21] MEDS: Venlafaxine XR (24 HR) 75 MG CAP.ER.24H PO SCH (10:33)
[2020-10-21] MEDS: predniSONE 20 MG TABLET PO SCH (10:33)
[2020-10-21] MEDS: NIFEdipine XL (24 HR) 60 MG TAB.ER.24 PO SCH (10:33)
[2020-10-21] MEDS: Thiamine (B-1) 100 MG TABLET PO SCH (10:33)
[2020-10-21] MEDS: polyethylene glycoL 3350 17 GM POWD.PACK PO SCH (10:35)
[2020-10-21] MEDS: Insulin LISPRO 300 UNITS/3 ML VIAL SUBQ SCH ×4 (10:35→20:38)
[2020-10-21] MEDS: Insulin DETEMIR 100 UNIT/ML X5UNITS SUBQ SCH ×2 (13:25→20:39)
[2020-10-21] MEDS ORDERED: Insulin DETEMIR 100 UNIT/ML X5UNITS SUBQ ONE (13:26)
[2020-10-21] MEDS: Nicotine 2 MG GUM BC PRN (20:10)
[2020-10-21] MEDS: traZODone 50 MG TABLET PO SCH (20:37)
[2020-10-21] MEDS: Haloperidol Lactate 5 MG/ML VIAL IVP PRN (20:46)
[2020-10-22] MEDS: Ipratropium/Albuterol Neb 3 ML IH SCH ×4 (03:54→21:17)
[2020-10-22] MEDS: Haloperidol Lactate 5 MG/ML VIAL IVP PRN ×2 (05:08→21:58)
[2020-10-22] MEDS: Piperacillin/Tazobactam 3.375 GM in 0.9 % Sodium Chloride Mini Bag 100 ML IVPB SCH ×3 (05:08→19:51)
[2020-10-22] MEDS: Methadone Oral Concentrate 50 MG/5 ML UDC PO SCH (05:09)
[2020-10-22 05:47] LABS: Basophils % 0.2 %; Eosinophils # 0.1 K/mcL (0.0-0.6); Eosinophils % 0.8 %; Hematocrit 44.1 % (37.5-50.1); Hemoglobin 13.9 g/dL (12.9-16.9); Immature Granulocytes % 0.7 % (0-4); Lymphocytes # 3.1 K/mcL (0.6-4.6); Lymphocytes % 20.1 %; Mean Corpuscular HGB Conc 31.5 g/dL (31.6-35.5); Mean Corpuscular Hemoglobin 27.7 pg (28.0-33.3); Mean Corpuscular Volume 87.8 fL (83.0-100.0); Mean Platelet Volume 9.7 fL (9.4-12.4); Monocytes % 6.4 %; Platelet Count 295 K/mcL (140-400); Red Blood Count 5.02 M/mcL (4.19-5.50); Red Cell Distribution Width 13.5 % (11.5-14.5); Segmented Neutrophils % 71.8 %; White Blood Count 15.3 K/mcL (4.3-11.1)
[2020-10-22 06:11] LABS: BUN/Creatinine Ratio 33 (6-26); Blood Urea Nitrogen 41 mg/dL (6-20); Calcium 7.5 mg/dL (8.6-10.3); Carbon Dioxide 31 mEq/L (23-29); Chloride 99 mEq/L (98-107); Glucose 178 mg/dL (70-105); Magnesium 1.8 mg/dL (1.6-2.6); Osmolality,Calculated 301 (280-300); Phosphorous 4.4 mg/dL (2.7-4.5); Sodium 138 mEq/L (136-145); eGFR For African Americans > 60 (> 60); eGFR For Non-African Americans > 60 (> 60)
[2020-10-22] MEDS: Venlafaxine XR (24 HR) 75 MG CAP.ER.24H PO SCH (08:02)
[2020-10-22] MEDS: NIFEdipine XL (24 HR) 60 MG TAB.ER.24 PO SCH (08:02)
[2020-10-22] MEDS: hydrOXYzine pamoate 25 MG CAPSULE PO PRN ×3 (08:02→19:51)
[2020-10-22] MEDS: predniSONE 20 MG TABLET PO SCH (08:02)
[2020-10-22] MEDS: Sennosides/Docusate Sodium TABLET PO SCH ×2 (08:02→19:51)
[2020-10-22] MEDS: Insulin DETEMIR 100 UNIT/ML X5UNITS SUBQ SCH ×2 (08:03→19:52)
[2020-10-22] MEDS: Benzonatate 100 MG CAPSULE PO PRN (08:03)
[2020-10-22] MEDS: Nicotine 21 MG PATCH.TD24 TD SCH (08:03)
[2020-10-22] MEDS: Thiamine (B-1) 100 MG TABLET PO SCH (08:03)
[2020-10-22] MEDS: Insulin LISPRO 300 UNITS/3 ML VIAL SUBQ SCH ×4 (08:03→19:52)
[2020-10-22] MEDS: polyethylene glycoL 3350 17 GM POWD.PACK PO SCH (08:04)
[2020-10-22] MEDS: Budesonide/Formoterol 160/4.5 1 PUFF INH IH SCH ×2 (11:11→21:17)
[2020-10-22] MEDS: traZODone 50 MG TABLET PO SCH (19:51)
[2020-10-23] MEDS: Ipratropium/Albuterol Neb 3 ML IH SCH ×2 (03:46→09:54)
[2020-10-23] MEDS: Piperacillin/Tazobactam 3.375 GM in 0.9 % Sodium Chloride Mini Bag 100 ML IVPB SCH (05:19)
[2020-10-23] MEDS: Methadone Oral Concentrate 50 MG/5 ML UDC PO SCH (05:20)
[2020-10-23 06:40] LABS: Basophils # 0.1 K/mcL (0.0-0.2); Basophils % 0.3 %; Eosinophils # 0.1 K/mcL (0.0-0.6); Eosinophils % 0.8 %; Hematocrit 46.1 % (37.5-50.1); Hemoglobin 15.2 g/dL (12.9-16.9); Immature Granulocytes % 0.7 % (0-4); Lymphocytes # 4.1 K/mcL (0.6-4.6); Lymphocytes % 23.9 %; Mean Corpuscular Hemoglobin 28.5 pg (28.0-33.3); Mean Corpuscular Volume 86.5 fL (83.0-100.0); Mean Platelet Volume 9.5 fL (9.4-12.4); Monocytes # 1.3 K/mcL (0.0-1.3); Monocytes % 7.4 %; Neutrophils # 11.4 K/mcL (1.6-8.9); Platelet Count 321 K/mcL (140-400); Red Blood Count 5.33 M/mcL (4.19-5.50); Red Cell Distribution Width 13.8 % (11.5-14.5); Segmented Neutrophils % 66.9 %; White Blood Count 17.1 K/mcL (4.3-11.1)
[2020-10-23 07:01] LABS: BUN/Creatinine Ratio 32 (6-26); Blood Urea Nitrogen 34 mg/dL (6-20); Calcium 7.8 mg/dL (8.6-10.3); Carbon Dioxide 26 mEq/L (23-29); Chloride 102 mEq/L (98-107); Glucose 112 mg/dL (70-105); Magnesium 1.7 mg/dL (1.6-2.6); Osmolality,Calculated 292 (280-300); Phosphorous 4.5 mg/dL (2.7-4.5); Potassium 3.9 mEq/L (3.5-5.1); Sodium 137 mEq/L (136-145); eGFR For African Americans > 60 (> 60); eGFR For Non-African Americans > 60 (> 60)
[2020-10-23 07:11] LABS: Platelet Estimate Normal (Normal); Reactive Lymphocytes Present (Not Present)
[2020-10-23] MEDS: Insulin LISPRO 300 UNITS/3 ML VIAL SUBQ SCH ×2 (08:08→11:44)
[2020-10-23] MEDS: Nicotine 21 MG PATCH.TD24 TD SCH (08:19)
[2020-10-23] MEDS: polyethylene glycoL 3350 17 GM POWD.PACK PO SCH (08:19)
[2020-10-23] MEDS: Insulin DETEMIR 100 UNIT/ML X5UNITS SUBQ SCH (08:19)
[2020-10-23] MEDS: Sennosides/Docusate Sodium TABLET PO SCH (08:19)
[2020-10-23] MEDS: predniSONE 20 MG TABLET PO SCH (08:19)
[2020-10-23] MEDS: Venlafaxine XR (24 HR) 75 MG CAP.ER.24H PO SCH (08:20)
[2020-10-23] MEDS: NIFEdipine XL (24 HR) 60 MG TAB.ER.24 PO SCH (08:20)
[2020-10-23] MEDS ORDERED: Furosemide 20 MG TABLET PO SCH (09:00)
[2020-10-23] MEDS: Budesonide/Formoterol 160/4.5 1 PUFF INH IH SCH (09:54)
[2020-10-23 11:19] VITALS: BP 150/95
== END 2020-10-23 13:30 | disposition home or self-care (01) | DRG 720 ==
LOC: 2ANU 16:19 → EMEROOARM 16:19 → SUATTDRO 10-16 01:34 → 2ANU 10-16 02:24
PROVIDERS: ADMIT Family Medicine; ATTEND Internal Medicine

== ENCOUNTER 2020-11-16 14:05 | Inpatient (IN) ==
[2020-11-16] MEDS ORDERED: Ketorolac 15 MG/ML VIAL IVP ONE (14:20)
[2020-11-16] MEDS ORDERED: 0.9 % Sodium Chloride 1,000 ML IVC ONE (14:20)
[2020-11-16] MEDS ORDERED: Prochlorperazine 10 MG/2 ML VIAL IVP ONE (14:21)
[2020-11-16 14:29] LABS: Basophils # 0.1 K/mcL (0.0-0.2); Basophils % 0.4 %; Eosinophils # 0.3 K/mcL (0.0-0.6); Eosinophils % 2.1 %; Hematocrit 46.7 % (37.5-50.1); Hemoglobin 14.8 g/dL (12.9-16.9); Immature Granulocytes % 0.7 % (0-4); Lymphocytes # 3.4 K/mcL (0.6-4.6); Lymphocytes % 24.5 %; Mean Corpuscular HGB Conc 31.7 g/dL (31.6-35.5); Mean Corpuscular Hemoglobin 27.6 pg (28.0-33.3); Mean Platelet Volume 9.7 fL (9.4-12.4); Monocytes # 1.2 K/mcL (0.0-1.3); Monocytes % 8.7 %; Neutrophils # 8.9 K/mcL (1.6-8.9); Platelet Count 313 K/mcL (140-400); Red Blood Count 5.37 M/mcL (4.19-5.50); Red Cell Distribution Width 14.3 % (11.5-14.5); Segmented Neutrophils % 63.6 %
[2020-11-16] MEDS ORDERED: lisinopriL 10 MG TABLET PO STA (14:34)
[2020-11-16] MEDS ORDERED: Ipratropium/Albuterol Neb 3 ML IH PRN (14:47)
[2020-11-16 16:14] LABS: BUN/Creatinine Ratio 23 (6-26); Blood Urea Nitrogen 23 mg/dL (6-20); Calcium 6.9 mg/dL (8.6-10.3); Carbon Dioxide 30 mEq/L (23-29); Chloride 104 mEq/L (98-107); Glucose 186 mg/dL (70-105); Osmolality,Calculated 297 (280-300); Potassium 4.1 mEq/L (3.5-5.1); Sodium 139 mEq/L (136-145); eGFR For African Americans > 60 (> 60); eGFR For Non-African Americans > 60 (> 60)
[2020-11-16 16:26] LABS: Thyroid Stimulating Hormone 1.403 mcIU/mL (0.340-5.600)
[2020-11-16] MEDS ORDERED: Calcium Chloride 1,000 MG in 0.9 % Sodium Chloride 100 ML IVPB ONE (16:30)
[2020-11-16] MEDS ORDERED: Calcium Gluconate 1gm/50mL 1 GM/50 ML BAG IVPB ONE (16:41)
[2020-11-16] MEDS ORDERED: Isovue-370 500 ML BOTTLE IVP ONE (17:26)
[2020-11-16] MEDS ORDERED: Piperacillin/Tazobactam 3.375 GM in 0.9 % Sodium Chloride Mini Bag 100 ML IVPB ONE (18:43)
[2020-11-16] MEDS ORDERED: Azithromycin 250 MG TABLET PO ONE (18:43)
[2020-11-16] MEDS ORDERED: Naloxone 0.4 MG/ML INJ IVP PRN (20:49)
[2020-11-16] MEDS ORDERED: Melatonin 3 MG TABLET PO PRN (20:49)
[2020-11-16] MEDS ORDERED: Ondansetron 4 MG/2 ML VIAL IVP PRN (20:49)
[2020-11-16] MEDS ORDERED: *HR* Dextrose 50 % in Water (Vial) 50 ML VIAL IVP PRN (21:00)
[2020-11-16] MEDS ORDERED: D5% in Water 1,000 ML IVC PRN (21:00)
[2020-11-16] MEDS ORDERED: Dextrose Gel 15 GM/37.5 ML TUBE PO PRN ×2 (21:00)
[2020-11-16 21:27] LABS: Adenovirus Not Detected (Not Detect); Bordetella Pertussis Not Detected (Not Detect); Chlamydophila pneumoniae Not Detected (Not Detect); Coronavirus 229E Not Detected (Not Detect); Coronavirus HKU1 Not Detected (Not Detect); Coronavirus NL63 Not Detected (Not Detect); Coronavirus OC43 Not Detected (Not Detect); Human Metapneumovirus Not Detected (Not Detect); Human Rhinovirus/Enterovirus Not Detected (Not Detect); Influenza A Subtype 2009 H1 Not Detected (Not Detect); Influenza B Not Detected (Not Detect); Mycoplasma pneumoniae Not Detected (Not Detect); Parainfluenza Virus 1 Not Detected (Not Detect); Parainfluenza Virus 2 Not Detected (Not Detect); Parainfluenza Virus 3 Not Detected (Not Detect); Parainfluenza Virus 4 Not Detected (Not Detect); Respiratory Syncytial Virus Not Detected (Not Detect); SARS-CoV-2 Not Detected (Not Detect)
[2020-11-16] MEDS ORDERED: Benzonatate 100 MG CAPSULE PO PRN (22:21)
[2020-11-16] MEDS: Ipratropium/Albuterol Neb 3 ML IH SCH (23:30)
[2020-11-17] MEDS: Acetaminophen 325 MG TABLET PO PRN ×2 (01:42→09:53)
[2020-11-17] MEDS: Nicotine 21 MG PATCH.TD24 TD SCH ×2 (02:45→09:55)
[2020-11-17] MEDS: Gabapentin 300 MG CAPSULE PO SCH ×4 (02:47→19:49)
[2020-11-17] MEDS: traZODone 50 MG TABLET PO SCH ×2 (02:47→19:48)
[2020-11-17] MEDS: predniSONE 20 MG TABLET PO SCH ×2 (02:47→09:55)
[2020-11-17 03:34] LABS: Hematocrit 44.7 % (37.5-50.1); Hemoglobin 14.3 g/dL (12.9-16.9); Mean Corpuscular Volume 87.5 fL (83.0-100.0); Platelet Count 276 K/mcL (140-400); Red Blood Count 5.11 M/mcL (4.19-5.50); Red Cell Distribution Width 14.5 % (11.5-14.5); White Blood Count 10.1 K/mcL (4.3-11.1)
[2020-11-17] MEDS: Insulin LISPRO 300 UNITS/3 ML VIAL SUBQ SCH ×4 (03:55→17:33)
[2020-11-17] MEDS: Insulin DETEMIR 100 UNIT/ML X5UNITS SUBQ SCH ×2 (03:56→20:09)
[2020-11-17 03:58] LABS: BUN/Creatinine Ratio 22 (6-26); Blood Urea Nitrogen 25 mg/dL (6-20); Calcium 7.1 mg/dL (8.6-10.3); Carbon Dioxide 33 mEq/L (23-29); Chloride 100 mEq/L (98-107); Glucose 245 mg/dL (70-105); Osmolality,Calculated 299 (280-300); Potassium 4.3 mEq/L (3.5-5.1); Sodium 138 mEq/L (136-145); eGFR For African Americans > 60 (> 60); eGFR For Non-African Americans > 60 (> 60)
[2020-11-17] MEDS: Ipratropium/Albuterol Neb 3 ML IH SCH ×6 (04:18→23:16)
[2020-11-17 06:17] LABS: Amphetamine Screen,Urine Negative ng/mL (Cutoff=1000); Barbiturate Screen,Urine Negative ng/mL (Cutoff=200)
[2020-11-17 06:18] LABS: Benzodiazepines Screen,Urine Negative ng/mL (Cutoff=300); Cannabinoid Screen,Urine Negative ng/mL (Cutoff = 50); Cocaine Screen,Urine Negative ng/mL (Cutoff= 300); Opiate Screen,Urine Negative ng/mL (Cutoff=300); Phencyclidine Screen,Urine Negative ng/mL (Cutoff=25)
[2020-11-17 06:21] LABS: Bilirubin,Urine Negative (Negative); Blood,Urine Negative (Negative); Clarity,Urine Clear (Clear); Color,Urine Colorless (Yellow); Glucose,Urine (UA) 500 mg/dL (Normal); Ketones,Urine Negative (Negative); Leukocyte Esterase,Urine Negative (Negative); Mucus,Urine Few per lpf (None-Few); Nitrite,Urine Negative (Negative); Protein,Urine Negative (Neg-Trace); RBC,Urine 0-3 per hpf (0-3); Specific Gravity,Urine 1.022 (1.010-1.025); Squamous Epithelial Cell,Urine Few per hpf (None-Few); Urobilinogen,Urine Normal (Normal); WBC,Urine 0-3 per hpf (0-3)
[2020-11-17] MEDS: cefTRIAXone 1,000 MG in Water for inj. (sterile) 10 ML IVP SCH (09:53)
[2020-11-17] MEDS: Venlafaxine XR (24 HR) 150 MG CAP.ER.24H PO SCH (09:54)
[2020-11-17] MEDS: NIFEdipine XL (24 HR) 60 MG TAB.ER.24 PO SCH (09:54)
[2020-11-17] MEDS: Furosemide 20 MG TABLET PO SCH (09:55)
[2020-11-17] MEDS: lisinopriL 10 MG TABLET PO SCH (09:55)
[2020-11-17] MEDS: Azithromycin 500 MG in 0.9 % Sodium Chloride 250 ML IVPB SCH (09:58)
[2020-11-17] MEDS: hydroCHLOROthiazide 25 MG TABLET PO SCH (10:03)
[2020-11-17] MEDS ORDERED: hydrOXYzine pamoate 25 MG CAPSULE PO PRN (14:34)
[2020-11-17] MEDS: *HR* Heparin 5,000 UNIT/ML VIAL SQ SCH (17:33)
[2020-11-17] MEDS ORDERED: *HR* Methadone 10 MG TABLET PO ONE (20:18)
[2020-11-18 03:08] LABS: Hematocrit 46.2 % (37.5-50.1); Hemoglobin 15.5 g/dL (12.9-16.9); Mean Corpuscular HGB Conc 33.5 g/dL (31.6-35.5); Mean Corpuscular Hemoglobin 28.4 pg (28.0-33.3); Mean Corpuscular Volume 84.6 fL (83.0-100.0); Mean Platelet Volume 9.6 fL (9.4-12.4); Platelet Count 300 K/mcL (140-400); Red Blood Count 5.46 M/mcL (4.19-5.50); Red Cell Distribution Width 14.1 % (11.5-14.5); White Blood Count 15.3 K/mcL (4.3-11.1)
[2020-11-18 03:31] LABS: BUN/Creatinine Ratio 28 (6-26); Blood Urea Nitrogen 30 mg/dL (6-20); Calcium 7.8 mg/dL (8.6-10.3); Carbon Dioxide 31 mEq/L (23-29); Chloride 92 mEq/L (98-107); Glucose 448 mg/dL (70-105); Osmolality,Calculated 302 (280-300); Potassium 4.3 mEq/L (3.5-5.1); Sodium 133 mEq/L (136-145); eGFR For African Americans > 60 (> 60); eGFR For Non-African Americans > 60 (> 60)
[2020-11-18] MEDS: Ipratropium/Albuterol Neb 3 ML IH SCH ×6 (03:39→23:59)
[2020-11-18] MEDS: *HR* Heparin 5,000 UNIT/ML VIAL SQ SCH ×2 (04:56→16:56)
[2020-11-18] MEDS: Venlafaxine XR (24 HR) 150 MG CAP.ER.24H PO SCH (08:10)
[2020-11-18] MEDS: Nicotine 21 MG PATCH.TD24 TD SCH (08:10)
[2020-11-18] MEDS: Gabapentin 300 MG CAPSULE PO SCH ×3 (08:10→20:32)
[2020-11-18] MEDS: NIFEdipine XL (24 HR) 60 MG TAB.ER.24 PO SCH (08:10)
[2020-11-18] MEDS: Furosemide 20 MG TABLET PO SCH (08:11)
[2020-11-18] MEDS: predniSONE 20 MG TABLET PO SCH (08:11)
[2020-11-18] MEDS: cefTRIAXone 1,000 MG in Water for inj. (sterile) 10 ML IVP SCH (08:11)
[2020-11-18] MEDS: lisinopriL 10 MG TABLET PO SCH (08:11)
[2020-11-18] MEDS: hydroCHLOROthiazide 25 MG TABLET PO SCH (08:11)
[2020-11-18] MEDS: Azithromycin 500 MG in 0.9 % Sodium Chloride 250 ML IVPB SCH (08:12)
[2020-11-18] MEDS: Insulin LISPRO 300 UNITS/3 ML VIAL SUBQ SCH ×4 (08:14→20:33)
[2020-11-18] MEDS: Methadone Oral Concentrate 50 MG/5 ML UDC PO SCH (10:33)
[2020-11-18] MEDS: Insulin DETEMIR 100 UNIT/ML X5UNITS SUBQ SCH ×2 (11:40→20:32)
[2020-11-18] MEDS ORDERED: Insulin Human Regular 10 UNIT in 0.9 % Sodium Chloride 10 ML IV ONE ×2 (13:17→15:13)
[2020-11-18] MEDS: traZODone 50 MG TABLET PO SCH (20:31)
[2020-11-19 02:15] LABS: Hemoglobin 14.9 g/dL (12.9-16.9); Mean Corpuscular HGB Conc 32.4 g/dL (31.6-35.5); Mean Corpuscular Hemoglobin 27.8 pg (28.0-33.3); Mean Corpuscular Volume 85.8 fL (83.0-100.0); Mean Platelet Volume 9.8 fL (9.4-12.4); Platelet Count 343 K/mcL (140-400); Red Blood Count 5.36 M/mcL (4.19-5.50); Red Cell Distribution Width 14.6 % (11.5-14.5); White Blood Count 18.2 K/mcL (4.3-11.1)
[2020-11-19 02:33] LABS: Calcium 8.2 mg/dL (8.6-10.3); Potassium 4.2 mEq/L (3.5-5.1)
[2020-11-19] MEDS: Ipratropium/Albuterol Neb 3 ML IH SCH ×6 (04:06→23:05)
[2020-11-19] MEDS: *HR* Heparin 5,000 UNIT/ML VIAL SQ SCH ×2 (04:25→16:07)
[2020-11-19] MEDS: cefTRIAXone 1,000 MG in Water for inj. (sterile) 10 ML IVP SCH (07:50)
[2020-11-19] MEDS: Insulin LISPRO 300 UNITS/3 ML VIAL SUBQ SCH ×4 (07:50→20:09)
[2020-11-19] MEDS: Venlafaxine XR (24 HR) 150 MG CAP.ER.24H PO SCH (07:51)
[2020-11-19] MEDS: Insulin DETEMIR 100 UNIT/ML X5UNITS SUBQ SCH ×2 (07:51→20:06)
[2020-11-19] MEDS: hydroCHLOROthiazide 25 MG TABLET PO SCH (07:51)
[2020-11-19] MEDS: Methadone Oral Concentrate 50 MG/5 ML UDC PO SCH (07:51)
[2020-11-19] MEDS: NIFEdipine XL (24 HR) 60 MG TAB.ER.24 PO SCH (07:52)
[2020-11-19] MEDS: predniSONE 20 MG TABLET PO SCH (07:52)
[2020-11-19] MEDS: lisinopriL 10 MG TABLET PO SCH (07:52)
[2020-11-19] MEDS: Nicotine 21 MG PATCH.TD24 TD SCH (07:52)
[2020-11-19] MEDS ORDERED: 0.9 % Sodium Chloride 1,000 ML IVC ONE (07:59)
[2020-11-19] MEDS: 0.9 % Sodium Chloride 1,000 ML IVC SCH ×2 (09:58→20:05)
[2020-11-19] MEDS: traZODone 50 MG TABLET PO SCH (20:05)
[2020-11-20] MEDS: Ipratropium/Albuterol Neb 3 ML IH SCH ×3 (03:33→11:06)
[2020-11-20 05:02] LABS: Hematocrit 48.6 % (37.5-50.1); Hemoglobin 15.6 g/dL (12.9-16.9); Mean Corpuscular HGB Conc 32.1 g/dL (31.6-35.5); Mean Corpuscular Hemoglobin 27.6 pg (28.0-33.3); Mean Corpuscular Volume 85.9 fL (83.0-100.0); Mean Platelet Volume 9.4 fL (9.4-12.4); Platelet Count 316 K/mcL (140-400); Red Blood Count 5.66 M/mcL (4.19-5.50); Red Cell Distribution Width 14.4 % (11.5-14.5); White Blood Count 16.2 K/mcL (4.3-11.1)
[2020-11-20 05:22] LABS: BUN/Creatinine Ratio 38 (6-26); Blood Urea Nitrogen 45 mg/dL (6-20); Calcium 8.1 mg/dL (8.6-10.3); Carbon Dioxide 34 mEq/L (23-29); Chloride 97 mEq/L (98-107); Glucose 140 mg/dL (70-105); Osmolality,Calculated 302 (280-300); Potassium 4.4 mEq/L (3.5-5.1); Sodium 139 mEq/L (136-145); eGFR For African Americans > 60 (> 60); eGFR For Non-African Americans > 60 (> 60)
[2020-11-20 06:49] VITALS: BP 146/91
[2020-11-20] MEDS: Insulin LISPRO 300 UNITS/3 ML VIAL SUBQ SCH (08:09)
[2020-11-20] MEDS ORDERED: NIFEdipine XL (24 HR) 30 MG TAB.ER.24 PO SCH (09:00)
[2020-11-20] MEDS ORDERED: lisinopriL 10 MG TABLET PO SCH (09:00)
[2020-11-20] MEDS: *HR* Heparin 5,000 UNIT/ML VIAL SQ SCH (10:11)
[2020-11-20] MEDS: cefTRIAXone 1,000 MG in Water for inj. (sterile) 10 ML IVP SCH (10:38)
[2020-11-20] MEDS: Nicotine 21 MG PATCH.TD24 TD SCH (10:40)
[2020-11-20] MEDS: Venlafaxine XR (24 HR) 150 MG CAP.ER.24H PO SCH (10:40)
[2020-11-20] MEDS: predniSONE 20 MG TABLET PO SCH (10:40)
[2020-11-20] MEDS: Methadone Oral Concentrate 50 MG/5 ML UDC PO SCH (10:45)
[2020-11-20] MEDS: Insulin DETEMIR 100 UNIT/ML X5UNITS SUBQ SCH (11:09)
== END 2020-11-20 13:02 | disposition home or self-care (01) | DRG 142 ==
LOC: 2ANU 14:05 → EMEROOARM 14:05 → SUATTDRO 20:47 → 2ANU 22:13
PROVIDERS: ADMIT Student in an Organized Health Care Education/Training Program; ATTEND Family Medicine

== ENCOUNTER 2021-01-22 14:11 | Observation (INO) ==
[2021-01-22] MEDS ORDERED: Dextrose Gel 15 GM/37.5 ML TUBE PO PRN ×4 (17:39)
[2021-01-22] MEDS ORDERED: D5% in Water 1,000 ML IVC PRN (17:39)
[2021-01-22] MEDS ORDERED: Ondansetron 4 MG/2 ML VIAL IVP PRN (17:39)
[2021-01-22] MEDS ORDERED: Naloxone 0.4 MG/ML INJ IVP PRN (17:39)
[2021-01-22] MEDS ORDERED: *HR* Dextrose 50 % in Water (Vial) 50 ML VIAL IVP PRN (17:39)
[2021-01-22] MEDS ORDERED: hydrOXYzine pamoate 25 MG CAPSULE PO PRN (21:24)
[2021-01-22] MEDS: Insulin DETEMIR 100 UNIT/ML X5UNITS SUBQ SCH (22:28)
[2021-01-22] MEDS: traZODone 50 MG TABLET PO SCH (22:28)
[2021-01-22] MEDS: Nicotine 21 MG PATCH.TD24 TD SCH (22:28)
[2021-01-22] MEDS: Gabapentin 400 MG CAPSULE PO SCH (22:29)
[2021-01-23 05:09] LABS: Basophils # 0.1 K/mcL (0.0-0.2); Basophils % 0.4 %; Eosinophils # 0.4 K/mcL (0.0-0.6); Eosinophils % 3.1 %; Hematocrit 46.4 % (37.5-50.1); Hemoglobin 14.8 g/dL (12.9-16.9); Immature Granulocytes % 0.4 % (0-4); Lymphocytes # 3.1 K/mcL (0.6-4.6); Lymphocytes % 24.2 %; Mean Corpuscular HGB Conc 31.9 g/dL (31.6-35.5); Mean Corpuscular Hemoglobin 27.5 pg (28.0-33.3); Mean Corpuscular Volume 86.1 fL (83.0-100.0); Mean Platelet Volume 9.5 fL (9.4-12.4); Monocytes # 1.2 K/mcL (0.0-1.3); Monocytes % 9.2 %; Platelet Count 333 K/mcL (140-400); Red Blood Count 5.39 M/mcL (4.19-5.50); Red Cell Distribution Width 13.7 % (11.5-14.5); Segmented Neutrophils % 62.7 %; White Blood Count 12.7 K/mcL (4.3-11.1)
[2021-01-23 05:32] LABS: BUN/Creatinine Ratio 23 (6-26); Blood Urea Nitrogen 19 mg/dL (6-20); Calcium 6.7 mg/dL (8.6-10.3); Carbon Dioxide 31 mEq/L (23-29); Chloride 99 mEq/L (98-107); Glucose 207 mg/dL (70-105); Osmolality,Calculated 294 (280-300); Potassium 3.3 mEq/L (3.5-5.1); Sodium 138 mEq/L (136-145); eGFR For African Americans > 60 (> 60); eGFR For Non-African Americans > 60 (> 60)
[2021-01-23] MEDS: NIFEdipine XL (24 HR) 30 MG TAB.ER.24 PO SCH (08:39)
[2021-01-23] MEDS: Venlafaxine XR (24 HR) 150 MG CAP.ER.24H PO SCH (08:39)
[2021-01-23] MEDS: Furosemide 20 MG TABLET PO SCH (08:40)
[2021-01-23] MEDS: lisinopriL 10 MG TABLET PO SCH (08:40)
[2021-01-23] MEDS: Insulin DETEMIR 100 UNIT/ML X5UNITS SUBQ SCH ×2 (08:40→20:48)
[2021-01-23] MEDS: Gabapentin 400 MG CAPSULE PO SCH ×3 (08:40→20:49)
[2021-01-23] MEDS: Nicotine 21 MG PATCH.TD24 TD SCH (08:40)
[2021-01-23] MEDS: Insulin LISPRO 300 UNITS/3 ML VIAL SUBQ SCH ×3 (08:41→17:16)
[2021-01-23] MEDS ORDERED: Nicotine 21 MG PATCH.TD24 TD SCH (09:00)
[2021-01-23] MEDS ORDERED: Gabapentin 400 MG CAPSULE PO SCH (09:00)
[2021-01-23] MEDS ORDERED: Nicotine 2 MG GUM BC PRN (10:12)
[2021-01-23] MEDS: Methadone Oral Concentrate 50 MG/5 ML UDC PO SCH (10:46)
[2021-01-23] MEDS: traZODone 50 MG TABLET PO SCH (20:49)
[2021-01-23] MEDS ORDERED: traZODone 50 MG TABLET PO SCH (21:00)
[2021-01-24] MEDS: Furosemide 20 MG TABLET PO SCH (09:20)
[2021-01-24] MEDS: lisinopriL 10 MG TABLET PO SCH (09:20)
[2021-01-24] MEDS: Venlafaxine XR (24 HR) 150 MG CAP.ER.24H PO SCH (09:20)
[2021-01-24] MEDS: NIFEdipine XL (24 HR) 30 MG TAB.ER.24 PO SCH (09:20)
[2021-01-24] MEDS: Gabapentin 400 MG CAPSULE PO SCH ×3 (09:20→20:56)
[2021-01-24] MEDS: Nicotine 21 MG PATCH.TD24 TD SCH (09:20)
[2021-01-24] MEDS: Insulin LISPRO 300 UNITS/3 ML VIAL SUBQ SCH ×3 (09:21→17:15)
[2021-01-24] MEDS: Insulin DETEMIR 100 UNIT/ML X5UNITS SUBQ SCH ×2 (09:23→20:57)
[2021-01-24] MEDS: Methadone Oral Concentrate 50 MG/5 ML UDC PO SCH (10:23)
[2021-01-24] MEDS ORDERED: Ondansetron ODT 4 MG TAB.RAPDIS SL PRN (16:59)
[2021-01-24] MEDS: traZODone 50 MG TABLET PO SCH (20:56)
[2021-01-25 06:28] VITALS: BP 131/88; PULSE 102; TEMP 98.1; O2SAT 90
[2021-01-25] MEDS: Insulin LISPRO 300 UNITS/3 ML VIAL SUBQ SCH (08:18)
[2021-01-25] MEDS: Nicotine 21 MG PATCH.TD24 TD SCH (09:11)
[2021-01-25] MEDS: NIFEdipine XL (24 HR) 30 MG TAB.ER.24 PO SCH (09:11)
[2021-01-25] MEDS: lisinopriL 10 MG TABLET PO SCH (09:12)
[2021-01-25] MEDS: Gabapentin 400 MG CAPSULE PO SCH (09:12)
[2021-01-25] MEDS: Venlafaxine XR (24 HR) 150 MG CAP.ER.24H PO SCH (09:12)
[2021-01-25] MEDS: Furosemide 20 MG TABLET PO SCH (09:12)
[2021-01-25] MEDS: Methadone Oral Concentrate 50 MG/5 ML UDC PO SCH (10:18)
[2021-01-25] MEDS: Insulin DETEMIR 100 UNIT/ML X5UNITS SUBQ SCH (10:18)
== END 2021-01-25 10:36 | disposition home or self-care (01) ==
LOC: EMEROOARM 14:11 → 3NENU 14:11 → 2ANU 01-25 08:25
PROVIDERS: ADMIT Student in an Organized Health Care Education/Training Program; ATTEND Student in an Organized Health Care Education/Training Program

== ENCOUNTER 2021-11-22 10:19 | Observation (INO) ==
[2021-11-22 10:51] LABS: VBG HCO3 21 mEq/L (21-27); VBG PCO2 47 mmHg (41-51); VBG PH 7.27 pH Units (7.32-7.42); VBG PO2 142 mmHg (25-50)
[2021-11-22] MEDS: 0.9 % Sodium Chloride 1,000 ML IVC SCH ×3 (11:00→18:12)
[2021-11-22 11:09] LABS: Basophils % 0.3 %; Eosinophils % 0.2 %; Hematocrit 44.3 % (37.5-50.1); Hemoglobin 14.2 g/dL (12.9-16.9); Immature Granulocytes % 0.6 % (0-4); Lymphocytes % 16.9 %; Mean Corpuscular HGB Conc 32.1 g/dL (31.6-35.5); Mean Corpuscular Hemoglobin 28.6 pg (28.0-33.3); Mean Corpuscular Volume 89.3 fL (83.0-100.0); Mean Platelet Volume 10.4 fL (9.4-12.4); Monocytes # 1.2 K/mcL (0.0-1.3); Monocytes % 10.2 %; Neutrophils # 8.5 K/mcL (1.6-8.9); Platelet Count 299 K/mcL (140-400); Red Blood Count 4.96 M/mcL (4.19-5.50); Segmented Neutrophils % 71.8 %; White Blood Count 11.9 K/mcL (4.3-11.1)
[2021-11-22 11:38] LABS: Alanine Aminotransferase 18 Units/L (7-52); Albumin 3.7 g/dL (3.5-5.7); Albumin/Globulin Ratio 1.1 (1.1-2.2); Alkaline Phosphatase 108 Units/L (34-104); Aspartate Amino Transferase 18 Units/L (13-39); BUN/Creatinine Ratio 14 (6-26); Bilirubin,Total 0.5 mg/dL (0.3-1.0); Blood Urea Nitrogen 31 mg/dL (6-20); Calcium 6.9 mg/dL (8.6-10.3); Carbon Dioxide 19 mEq/L (23-29); Chloride 88 mEq/L (98-107); Globulin 3.5 g/dL (2.4-3.5); Glucose 825 mg/dL (70-105); Osmolality,Calculated 301 (280-300); Potassium 4.8 mEq/L (3.5-5.1); Sodium 122 mEq/L (136-145); Total Protein 7.2 g/dL (6.4-8.9); Troponin I < 0.03 ng/mL (< 0.04); eGFR For African Americans 39 (> 60); eGFR For Non-African Americans 32 (> 60)
[2021-11-22] MEDS ORDERED: Potassium Chloride Elixir 20 MEQ/15 ML UDC PO ONE (11:47)
[2021-11-22] MEDS ORDERED: Naloxone 0.4 MG/ML INJ IVP PRN (13:07)
[2021-11-22] MEDS ORDERED: Insulin Regular, Human 100 UNIT/ML IV PRN (13:08)
[2021-11-22] MEDS ORDERED: *HR* Dextrose 50 % in Water (Syg) 50 ML SYRINGE IVP PRN ×2 (13:08→14:11)
[2021-11-22] MEDS ORDERED: D5% in 0.45% NACL 1,000 ML IVC PRN (13:08)
[2021-11-22] MEDS ORDERED: D5% in 0.45% NACL w KCl 20 MEQ/1,000 ML MLS IVC PRN (13:08)
[2021-11-22] MEDS ORDERED: 0.45 % Sodium Chloride w/KCl 20 MEQ/1,000 ML MLS IVC SCH (13:15)
[2021-11-22 13:42] LABS: Estimated Average Glucose 404 mg/dl; Hemoglobin A1C 15.7 %
[2021-11-22 13:59] LABS: Bilirubin,Urine Negative (Negative); Blood,Urine Negative (Negative); Clarity,Urine Clear (Clear); Color,Urine Colorless (Yellow); Glucose,Urine (UA) >=1000 mg/dL (Normal); Ketones,Urine Negative (Negative); Leukocyte Esterase,Urine Negative (Negative); Mucus,Urine Few per lpf (None-Few); Nitrite,Urine Negative (Negative); Protein,Urine Negative (Neg-Trace); RBC,Urine 0-3 per hpf (0-3); Specific Gravity,Urine 1.022 (1.010-1.025); Urobilinogen,Urine Normal (Normal)
[2021-11-22 13:59] LABS: Calcium 6.5 mg/dL (8.6-10.3); Magnesium 2.1 mg/dL (1.6-2.6); Phosphorous 4.5 mg/dL (2.7-4.5)
[2021-11-22 14:03] LABS: Sodium, Urine 15.5 mEq/L
[2021-11-22] MEDS ORDERED: Melatonin 3 MG TABLET PO PRN (14:07)
[2021-11-22] MEDS ORDERED: Ondansetron 4 MG/2 ML VIAL IVP PRN (14:07)
[2021-11-22] MEDS ORDERED: D5% in Water 1,000 ML IVC PRN (14:11)
[2021-11-22] MEDS ORDERED: Dextrose Gel 15 GM/37.5 ML TUBE PO PRN ×2 (14:11)
[2021-11-22] MEDS ORDERED: Insulin DETEMIR 100 UNIT/ML X5UNITS SUBQ ONE (14:30)
[2021-11-22] MEDS ORDERED: Calcium Gluconate 1gm/50mL 1 GM/50 ML BAG IVPB ONE (14:55)
[2021-11-22] MEDS ORDERED: Insulin LISPRO 300 UNITS/3 ML VIAL SUBQ SCH (16:30)
[2021-11-22] MEDS: *HR* Heparin 5,000 UNIT/ML VIAL SQ SCH (18:12)
[2021-11-22] MEDS ORDERED: Insulin DETEMIR 100 UNIT/ML X5UNITS SUBQ SCH (21:00)
[2021-11-22] MEDS ORDERED: Acetaminophen 325 MG TABLET PO PRN (22:21)
[2021-11-23 02:14] LABS: Hematocrit 40.9 % (37.5-50.1); Hemoglobin 13.5 g/dL (12.9-16.9); Mean Corpuscular Hemoglobin 28.5 pg (28.0-33.3); Mean Corpuscular Volume 86.3 fL (83.0-100.0); Mean Platelet Volume 10.4 fL (9.4-12.4); Platelet Count 246 K/mcL (140-400); Red Blood Count 4.74 M/mcL (4.19-5.50); Red Cell Distribution Width 13.6 % (11.5-14.5); White Blood Count 9.4 K/mcL (4.3-11.1)
[2021-11-23 02:58] LABS: BUN/Creatinine Ratio 19 (6-26); Blood Urea Nitrogen 26 mg/dL (6-20); Calcium 6.5 mg/dL (8.6-10.3); Carbon Dioxide 24 mEq/L (23-29); Chloride 101 mEq/L (98-107); Glucose 314 mg/dL (70-105); Osmolality,Calculated 295 (280-300); Potassium 4.5 mEq/L (3.5-5.1); Sodium 134 mEq/L (136-145); eGFR For African Americans > 60 (> 60); eGFR For Non-African Americans 56 (> 60)
[2021-11-23] MEDS: *HR* Heparin 5,000 UNIT/ML VIAL SQ SCH (04:46)
[2021-11-23] MEDS: 0.9 % Sodium Chloride 1,000 ML IVC SCH (04:46)
[2021-11-23 05:11] VITALS: BP 189/98; PULSE 73; TEMP 97.7; O2SAT 96
[2021-11-23] MEDS ORDERED: hydrOXYzine pamoate 25 MG CAPSULE PO PRN (06:04)
[2021-11-23] MEDS ORDERED: Insulin LISPRO 300 UNITS/3 ML VIAL SUBQ SCH (07:50)
[2021-11-23] MEDS ORDERED: lisinopriL 10 MG TABLET PO SCH (09:00)
[2021-11-23] MEDS ORDERED: amLODIPine 5 MG TABLET PO SCH (09:00)
[2021-11-23] MEDS ORDERED: Venlafaxine XR (24 HR) 150 MG CAP.ER.24H PO SCH (09:00)
[2021-11-23] MEDS: Gabapentin 400 MG CAPSULE PO SCH ×2 (09:08→14:42)
[2021-11-23] MEDS: Calcium Gluconate 1gm/50mL 1 GM/50 ML BAG IVPB SCH ×2 (09:09→11:55)
[2021-11-23 15:51] LABS: Amphetamine Screen,Urine Negative ng/mL (Cutoff=1000); Barbiturate Screen,Urine Negative ng/mL (Cutoff=200); Benzodiazepines Screen,Urine Negative ng/mL (Cutoff=200); Cannabinoid Screen,Urine Negative ng/mL (Cutoff = 50); Cocaine Screen,Urine Negative ng/mL (Cutoff= 300); Opiate Screen,Urine Negative ng/mL (Cutoff=300); Phencyclidine Screen,Urine Negative ng/mL (Cutoff=25)
[2021-11-23] MEDS ORDERED: Insulin DETEMIR 100 UNIT/ML X5UNITS SUBQ SCH (21:00)
== END 2021-11-23 15:50 | disposition home or self-care (01) ==
LOC: SUATTDRO → 2NENU 10:19 → EMEROOARM 10:19 → 2NENU 16:40
PROVIDERS: ADMIT Internal Medicine; ATTEND Internal Medicine